=== PATIENT | female | born 1965 | race Caucasian/White ===

== ENCOUNTER → 2016-10-05 | Outpatient (CLI) | payer BC ==
[2016-10-05 08:31] LABS: Basophils # (A) 0.1 k/uL (0-0.2); Basophils % (A) 1 %; CH 29.8; CHCM 34.1; Eosinophils % (A) 1 %; HCT 42.6 % (34.0-46.0); HGB 13.9 gm/dL (11.4-16.0); Luc # (Auto) 0.08; Luc % (Auto) 1; Lymphocytes # (A) 1.7 k/uL (1.0-4.8); Lymphocytes % (A) 22 %; MCH 28.6 pg (25.0-35.0); MCHC 32.6 g/dL (31.0-37.0); MCV 87.8 fL (80.0-100.0); Mean Platelet Volume 7.3; Monocytes # (A) 0.4 k/uL (0-1.0); Monocytes % (A) 5 %; Neutrophils # (A) 5.5 k/uL (1.3-7.7); Neutrophils % (A) 71 %; RBC 4.85 m/uL (3.80-5.40); RDW 13.2 % (11.5-15.5); WBC 7.8 k/uL (3.8-10.6); WBC (Perox) 8.28
[2016-10-05 09:54] LABS: ALT 36 U/L (9-52); AST 15 U/L (14-36); Alkaline Phosphatase 86 U/L (38-126); Anion Gap 13 mmol/L; Blood Urea Nitrogen 25 mg/dL (7-17); Calcium 9.8 mg/dL (8.4-10.2); Carbon Dioxide 32 mmol/L (22-30); Chloride 100 mmol/L (98-107); Cholesterol 148 mg/dL (<200); Glucose 128 mg/dL (74-99); HDL Cholesterol 47 mg/dL (40-60); Non-African American GFR(MDRD) >60 (>60 ml/min/1.73 sqM); Potassium 4.1 mmol/L (3.5-5.1); Sodium 145 mmol/L (137-145); Total Bilirubin 0.6 mg/dL (0.2-1.3); Total Protein 7.4 g/dL (6.3-8.2); Triglycerides 98 mg/dL (<150)
[2016-10-05 10:56] LABS: Vitamin B12 >1000 pg/mL (239-931)
[2016-10-05 10:59] LABS: Hemoglobin A1C 6.2 % (4.2-6.1)
[2016-10-06 05:36] LABS: EBV - EA (IgG) 96.2 U/mL (<9.0); EBV - VCA (IgG) >750.0 U/mL (<18.0); EBV - VCA IgM <10.0 U/mL (<36.0)
== END | disposition home or self-care (01) ==
LOC: LABWHC1 08:07
PROVIDERS: ATTEND Family Medicine
DX: E78.5 Hyperlipidemia, unspecified (principal); E11.9 Type 2 diabetes mellitus without complications; I10 Essential (primary) hypertension; R15.9 Full incontinence of feces
CPT/HCPCS: 36415; 80053; 80061; 82607; 83036; 84439; 84443; 84481; 85025; 86308; 86663; 86664; 86665

== ENCOUNTER → 2017-01-08 | Outpatient (CLI) | payer BC ==
--- NOTE | 2017-01-11 09:23 | MM ---
Reason for exam: screening (asymptomatic). Last mammogram was performed 1 year ago. History: Patient is postmenopausal. Family history of breast cancer in paternal aunt. Physical Findings: A clinical breast exam by your physician is recommended on an annual basis and results should be correlated with mammographic findings. MG Screening Mammo w CAD Bilateral CC and MLO view(s) were taken. Prior study comparison: December 27, 2015, bilateral MG screening mammo w CAD. December 11, 2014, bilateral MG screening mammo w CAD. There are scattered fibroglandular densities. There is chronic nodularity bilaterally. No significant changes when compared with prior studies. ASSESSMENT: Benign, BI-RAD 2 RECOMMENDATION: Routine screening mammogram of both breasts in 1 year.
== END | disposition home or self-care (01) ==
LOC: RADMAMWWP 07:37
PROVIDERS: ATTEND Obstetrics & Gynecology
DX: Z12.31 Encounter for screening mammogram for malignant neoplasm of breast (principal)

== ENCOUNTER → 2017-04-12 | Outpatient (CLI) | payer BC ==
[2017-04-12 08:22] LABS: Basophils % (A) 0 %; CH 31.1; CHCM 34.2; Eosinophils # (A) 0.1 k/uL (0-0.7); Eosinophils % (A) 2 %; HCT 36.3 % (34.0-46.0); HDW 2.91; HGB 11.9 gm/dL (11.4-16.0); Luc # (Auto) 0.08; Luc % (Auto) 2; Lymphocytes # (A) 1.1 k/uL (1.0-4.8); Lymphocytes % (A) 23 %; MCHC 32.8 g/dL (31.0-37.0); MCV 91.3 fL (80.0-100.0); Mean Platelet Volume 7.4; Monocytes # (A) 0.2 k/uL (0-1.0); Monocytes % (A) 4 %; Neutrophils # (A) 3.3 k/uL (1.3-7.7); Neutrophils % (A) 69 %; RBC 3.97 m/uL (3.80-5.40); RDW 14.6 % (11.5-15.5); WBC 4.8 k/uL (3.8-10.6); WBC (Perox) 5.03
[2017-04-12 10:28] LABS: ALT 29 U/L (9-52); AST 18 U/L (14-36); Alkaline Phosphatase 83 U/L (38-126); Anion Gap 9 mmol/L; Blood Urea Nitrogen 24 mg/dL (7-17); Calcium 9.1 mg/dL (8.4-10.2); Carbon Dioxide 29 mmol/L (22-30); Chloride 107 mmol/L (98-107); Cholesterol 153 mg/dL (<200); Glucose 133 mg/dL (74-99); HDL Cholesterol 37 mg/dL (40-60); Non-African American GFR(MDRD) >60 (>60 ml/min/1.73 sqM); Potassium 3.8 mmol/L (3.5-5.1); Sodium 145 mmol/L (137-145); Total Bilirubin 0.3 mg/dL (0.2-1.3); Total Protein 6.1 g/dL (6.3-8.2)
[2017-04-12 11:26] LABS: Vitamin B12 >1000 pg/mL (239-931)
[2017-04-12 13:02] LABS: Hemoglobin A1C 6.3 % (4.2-6.1)
== END | disposition home or self-care (01) ==
LOC: LABWHC1 07:53
PROVIDERS: ATTEND Family Medicine
DX: E78.2 Mixed hyperlipidemia (principal); E11.9 Type 2 diabetes mellitus without complications; R53.82 Chronic fatigue, unspecified
CPT/HCPCS: 36415; 80053; 80061; 82306; 82607; 83036; 84439; 84443; 85025

== ENCOUNTER → 2017-06-11 | Outpatient (CLI) | payer BC ==
[2017-06-11 17:45] LABS: ALT 30 U/L (9-52); AST 16 U/L (14-36); Alkaline Phosphatase 93 U/L (38-126); Anion Gap 10 mmol/L; Blood Urea Nitrogen 23 mg/dL (7-17); Calcium 9.4 mg/dL (8.4-10.2); Carbon Dioxide 28 mmol/L (22-30); Chloride 100 mmol/L (98-107); Glucose 144 mg/dL (74-99); Non-African American GFR(MDRD) >60 (>60 ml/min/1.73 sqM); Sodium 138 mmol/L (137-145); Total Bilirubin 0.3 mg/dL (0.2-1.3)
[2017-06-12 00:09] LABS: Urine Creatinine 62.6 mg/dL
== END | disposition home or self-care (01) ==
LOC: LABWHC1 17:06
PROVIDERS: ATTEND Internal Medicine Endocrinology, Diabetes & Metabolism
DX: E11.65 Type 2 diabetes mellitus with hyperglycemia (principal)
CPT/HCPCS: 36415; 80053; 82043; 82570; 82607; 83036; 84443

== ENCOUNTER → 2017-07-01 | Outpatient (CLI) | payer BC ==
[2017-07-02 01:52] LABS: Soybean IgE <0.10 kU/L
[2017-07-05 20:42] LABS: Corn IgG 3.1 mcg/mL (< 2.0); Cow's Milk IgG 42.4 mcg/mL (< 2.0); Peanut IgG 2.4 mcg/mL (< 2.0); Potato IgG < 2.0 mcg/mL (< 2.0); Soybean IgG < 2.0 mcg/mL (< 2.0); Tomato IgG < 2.0 mcg/mL (< 2.0); Wheat IgG 2.7 mcg/mL (< 2.0)
[2017-07-06 07:34] LABS: Crab IgE <0.35 kU/L (<0.35); Crab IgE Class CLASS 0; Lettuce IgE Class CLASS 0
[2017-07-06 07:35] LABS: Beef IgE <0.35 kU/L (<0.35); Beef IgE Class CLASS 0; Pork IgE Class CLASS 0; Potato IgE <0.35 kU/L (<0.35); Potato IgE Class CLASS 0
[2017-07-06 07:36] LABS: Onion IgE <0.35 kU/L (<0.35); Onion IgE Class CLASS 0; Salmon IgE <0.35 kU/L (<0.35); Salmon IgE Class CLASS 0; Yeast Bakers/Brew IgE <0.35 kU/L (<0.35); Yeast Bakers/Brew IgE Class CLASS 0
[2017-07-06 07:37] LABS: Oat IgE Class CLASS 0
[2017-07-06 07:38] LABS: Celery IgE <0.35 kU/L (<0.35); Celery IgE Class CLASS 0; Chicken IgE Class CLASS 0; Chocolate IgE Class CLASS 0; Egg Yolk IgE Class CLASS 0; Latex IgE Class CLASS 0; Lobster IgE <0.35 kU/L (<0.35); Lobster IgE Class CLASS 0
[2017-07-06 07:39] LABS: Avocado Class CLASS 0; Banana IgE Class CLASS 0; Coffee IgE <0.35 kU/L (<0.35); Coffee IgE Class CLASS 0; Hazelnut IgE <0.35 kU/L (<0.35); Hazelnut IgE Class CLASS 0; Kiwi IgE <0.35 kU/L (<0.35); Kiwi IgE Class CLASS 0; Tea IgE <0.35 kU/L (<0.35); Tea IgE Class CLASS 0
== END ==
LOC: MMGSC 13:55
PROVIDERS: ATTEND Otolaryngology
DX: L50.0 Allergic urticaria (principal); J30.89 Other allergic rhinitis; B44.89 Other forms of aspergillosis
CPT/HCPCS: 36415; 86001; 86003

== ENCOUNTER → 2017-10-13 | Outpatient (CLI) | payer BC ==
[2017-10-13 18:49] LABS: ALT 22 U/L (9-52); AST 21 U/L (14-36); Albumin 4.1 g/dL (3.5-5.0); Alkaline Phosphatase 88 U/L (38-126); Anion Gap 11 mmol/L; Blood Urea Nitrogen 26 mg/dL (7-17); Calcium 9.5 mg/dL (8.4-10.2); Carbon Dioxide 30 mmol/L (22-30); Chloride 101 mmol/L (98-107); Cholesterol 168 mg/dL (<200); Glucose 103 mg/dL (74-99); HDL Cholesterol 33 mg/dL (40-60); LDL Cholesterol,Calculated 113 mg/dL (0-99); Potassium 4.2 mmol/L (3.5-5.1); Sodium 142 mmol/L (137-145); Total Bilirubin 0.6 mg/dL (0.2-1.3); Total Protein 6.8 g/dL (6.3-8.2); Triglycerides 109 mg/dL (<150)
[2017-10-14 03:51] LABS: Hemoglobin A1C 6.4 % (4.0-6.0)
== END | disposition home or self-care (01) ==
LOC: MMGSC 09:25
PROVIDERS: ATTEND Internal Medicine Endocrinology, Diabetes & Metabolism
DX: E11.65 Type 2 diabetes mellitus with hyperglycemia (principal)
CPT/HCPCS: 36415; 80053; 80061; 82607; 83036; 84443

== ENCOUNTER → 2017-12-23 | Outpatient (CLI) | payer BC ==
[2017-12-23 07:51] LABS: ALT 27 U/L (9-52); AST 19 U/L (14-36); Albumin 4.1 g/dL (3.5-5.0); Alkaline Phosphatase 76 U/L (38-126); Anion Gap 13 mmol/L; Blood Urea Nitrogen 21 mg/dL (7-17); Calcium 9.3 mg/dL (8.4-10.2); Carbon Dioxide 31 mmol/L (22-30); Chloride 101 mmol/L (98-107); Cholesterol 114 mg/dL (<200); Glucose 126 mg/dL (74-99); HDL Cholesterol 36 mg/dL (40-60); LDL Cholesterol,Calculated 58 mg/dL (0-99); Potassium 4.1 mmol/L (3.5-5.1); Sodium 145 mmol/L (137-145); Total Bilirubin 0.5 mg/dL (0.2-1.3); Total Protein 6.4 g/dL (6.3-8.2); Triglycerides 98 mg/dL (<150)
== END | disposition home or self-care (01) ==
LOC: LABWHC1 06:47
PROVIDERS: ATTEND Family Medicine
DX: E11.9 Type 2 diabetes mellitus without complications (principal); E78.00 Pure hypercholesterolemia, unspecified; Z86.39 Personal history of other endocrine, nutritional and metabolic disease
CPT/HCPCS: 36415; 80053; 80061; 82043; 82306; 82570; 83036

== ENCOUNTER → 2018-01-20 | Outpatient (CLI) | payer BC ==
--- NOTE | 2018-01-20 16:12 | BD ---
EXAMINATION TYPE: Axial Bone Density DATE OF EXAM: 01/20/2018 COMPARISON: 2016 CLINICAL HISTORY: osteopenia Height: 4'11 1/2 Weight: 225 FRAX RISK QUESTIONS: Secondary Osteoporosis: RISK FACTORS HISTORY OF: Diet low in dairy products/other sources of calcium: y Postmenopausal woman: MEDICATIONS: Additional Medications: cholesterol, type 2 diabetes, blood pressure, asthma Additional History: EXAM MEASUREMENTS: Bone mineral densitometry was performed using the [employer] System. Bone mineral density as measured about the Lumbar spine is: ----- L1-L4(G/cm2): 1.243 T Score Values are as follows: ----- L2: 0.8 ----- L3: 0.7 ----- L4: 1.1 ----- L1-L4: 0.5 Bone mineral density has: Increased 5.3% since study of: 12/27/2015 Bone mineral density about the R hip (g/cm2): 0.889 Bone mineral density about the L hip (g/cm2): 0.879 T Score values are as follows: -----R Neck: -1.1 -----L Neck: -1.1 -----R Total: 0.0 -----L Total: 0.1 Bone mineral density has: Increased 4.0% since study of: 12/27/2015 IMPRESSION: Osteopenia (T Score between -2.5 and -1) with regards to the right femur. There is slightly increased risk of fracture and the patient may be considered for treatment. Re-Screen 2-5 years. NOTE: T-SCORE=SD OF THE YOUNG ADULT MEAN.
--- NOTE | 2018-01-21 09:06 | MM ---
Reason for exam: screening (asymptomatic). Last mammogram was performed 1 year ago. History: Patient is postmenopausal. Family history of breast cancer in paternal aunt. Physical Findings: A clinical breast exam by your physician is recommended on an annual basis and results should be correlated with mammographic findings. MG Screening Mammo w CAD Bilateral CC and MLO view(s) were taken. Prior study comparison: January 08, 2017, bilateral MG screening mammo w CAD. December 27, 2015, bilateral MG screening mammo w CAD. There are scattered fibroglandular densities. Finding: There are typically benign round, linear calcifications in both breasts. There is a chronic nodularity in the right breast. There is no discrete abnormality. ASSESSMENT: Benign, BI-RAD 2 RECOMMENDATION: Routine screening mammogram of both breasts in 1 year.
== END | disposition home or self-care (01) ==
LOC: RADMAMWWP 14:33
PROVIDERS: ATTEND Obstetrics & Gynecology
DX: Z12.31 Encounter for screening mammogram for malignant neoplasm of breast (principal); M85.851 Other specified disorders of bone density and structure, right thigh
CPT/HCPCS: 77067; 77080

== ENCOUNTER → 2018-05-26 | Outpatient (CLI) | payer BC ==
[2018-05-26 10:14] LABS: ALT 35 U/L (9-52); AST 20 U/L (14-36); Alkaline Phosphatase 81 U/L (38-126); Anion Gap 9 mmol/L; Blood Urea Nitrogen 21 mg/dL (7-17); Calcium 9.5 mg/dL (8.4-10.2); Carbon Dioxide 30 mmol/L (22-30); Chloride 105 mmol/L (98-107); Glucose 109 mg/dL (74-99); Potassium 3.9 mmol/L (3.5-5.1); Sodium 144 mmol/L (137-145); Total Bilirubin 0.5 mg/dL (0.2-1.3); Total Protein 6.6 g/dL (6.3-8.2)
[2018-05-26 18:31] LABS: Hemoglobin A1C 5.5 % (4.0-6.0)
== END | disposition home or self-care (01) ==
LOC: LABWHC1 08:11
PROVIDERS: ATTEND Internal Medicine Endocrinology, Diabetes & Metabolism
DX: E11.65 Type 2 diabetes mellitus with hyperglycemia (principal)
CPT/HCPCS: 36415; 80053; 82043; 82570; 83036

== ENCOUNTER → 2019-01-25 | Outpatient (CLI) | payer BC ==
--- NOTE | 2019-01-27 13:53 | MM ---
Reason for exam: screening (asymptomatic). Last mammogram was performed 1 year ago. History: Patient is postmenopausal. Family history of breast cancer in paternal aunt. Physical Findings: A clinical breast exam by your physician is recommended on an annual basis and results should be correlated with mammographic findings. MG Screening Mammo w CAD Bilateral CC and MLO view(s) were taken. Prior study comparison: January 20, 2018, bilateral MG screening mammo w CAD. January 08, 2017, bilateral MG screening mammo w CAD. The breast tissue is heterogeneously dense. This may lower the sensitivity of mammography. Benign appearing bilateral calcifications. Chronic nipple inversion. ASSESSMENT: Benign, BI-RAD 2 RECOMMENDATION: Routine screening mammogram of both breasts in 1 year.
== END | disposition home or self-care (01) ==
LOC: RADMAMWWP 07:17
PROVIDERS: ATTEND Obstetrics & Gynecology
DX: Z12.31 Encounter for screening mammogram for malignant neoplasm of breast (principal)
CPT/HCPCS: 77067

== ENCOUNTER → 2019-01-26 | Outpatient (CLI) | payer BC ==
[2019-01-26 17:07] LABS: Albumin 4.5 g/dL (3.80-4.90); Albumin/Globulin Ratio 2.81 (1.60-3.17); Anion Gap 10.2 mmol/L (4.00-12.00); BUN/Creat Ratio 45.71 Ratio (12.00-20.00); Calcium 9.6 mg/dL (8.7-10.3); Carbon Dioxide 27.8 mmol/L (21.6-31.8); Globulin 1.6 g/dL (1.6-3.3); Potassium 3.9 mmol/L (3.5-5.5); Total Bilirubin 0.4 mg/dL (0.3-1.2); Total Protein 6.1 g/dL (6.2-8.2)
[2019-01-26 19:25] LABS: Hemoglobin A1C 5.7 % (4.0-6.0)
== END | disposition home or self-care (01) ==
LOC: LABWHC1 08:49
PROVIDERS: ATTEND Family Medicine
DX: E78.5 Hyperlipidemia, unspecified (principal); E11.9 Type 2 diabetes mellitus without complications; I10 Essential (primary) hypertension
CPT/HCPCS: 36415; 80053; 80061; 82306; 83036

== ENCOUNTER → 2020-02-01 | Outpatient (CLI) | payer BC ==
--- NOTE | 2020-02-06 11:27 | MM ---
Reason for exam: screening (asymptomatic). Last mammogram was performed 1 year ago. History: Patient is postmenopausal. Family history of breast cancer in paternal aunt. Physical Findings: A clinical breast exam by your physician is recommended on an annual basis and results should be correlated with mammographic findings. MG Screening Mammo w CAD Bilateral CC and MLO view(s) were taken. Prior study comparison: January 25, 2019, bilateral MG screening mammo w CAD. January 20, 2018, bilateral MG screening mammo w CAD. There are scattered fibroglandular densities. Finding #1: There is a 11 mm equal density (isodense), oval mass in the upper outer quadrant of the left breast. Finding #2: There are typically benign calcifications in both breasts. There is a chronic nodularity bilaterally. ASSESSMENT: Incomplete: need additional imaging evaluation, BI-RAD 0 RECOMMENDATION: Special view mammogram of the left breast. If lesion persists on supplemental views, image directed ultrasound is recommended. [facility] will attempt to contact patient to return for supplemental views and ultrasound if indicated.
== END | disposition home or self-care (01) ==
LOC: RADMAMWWP 08:00
PROVIDERS: ATTEND Obstetrics & Gynecology
DX: Z12.31 Encounter for screening mammogram for malignant neoplasm of breast (principal)
CPT/HCPCS: 77067

== ENCOUNTER → 2020-02-09 | Outpatient (CLI) | payer BC ==
--- NOTE | 2020-02-12 08:52 | MM ---
Reason for exam: additional evaluation requested from abnormal screening. Last mammogram was performed less than 1 month ago. History: Patient is postmenopausal. Family history of breast cancer in paternal aunt. Physical Findings: Nurse did not find any significant physical abnormalities on exam. MG Work Up Mamm w CAD LT Spot compression CC, spot compression MLO, and LM view(s) were taken of the left breast. Prior study comparison: February 01, 2020, bilateral MG screening mammo w CAD. January 25, 2019, bilateral MG screening mammo w CAD. Finding: There is a 5 mm equal density (isodense), circumscribed round mass located 6 cm from the nipple in the upper outer quadrant of the left breast. Remains present on compression. These results were verbally communicated with the patient and result sheet given to the patient on 02/09/20. ASSESSMENT: Incomplete: need additional imaging evaluation, BI-RAD 0 RECOMMENDATION: Ultrasound of the left breast.
--- NOTE | 2020-02-12 08:55 | USB ---
Reason for exam: additional evaluation requested from abnormal screening. History: Patient is postmenopausal. Family history of breast cancer in paternal aunt. US Breast Workup Limited LT Left limited breast ultrasound including focal area of concern, retroareolar and axilla demonstrates a 7 x 2 x 7mm oval, hypoechoic lesion at 2 o'clock. These results were verbally communicated with the patient and result sheet given to the patient on 02/09/20. ASSESSMENT: Suspicious, BI-RAD 4 RECOMMENDATION: Ultrasound core biopsy of the left breast. (2 o'clock, stereotactic biopsy is ultrasound biopsy prohibitive) Called Dr. Aquino's office with mammographic findings and has scheduled an appointment for the patient for 03/06/20 at 4:[address] Lawson. Biopsy scheduled for 02/28/20 at 10:30. PRELIMINARY REPORT CALLED AND FAXED TO DR. LAWSON ON 02/12/20.
== END | disposition home or self-care (01) ==
LOC: RADMAMWWP 08:22
PROVIDERS: ATTEND Obstetrics & Gynecology
DX: R92.8 Other abnormal and inconclusive findings on diagnostic imaging of breast (principal)
CPT/HCPCS: 77065

== ENCOUNTER → 2020-02-19 | Day surgery (SDC) | payer BC ==
[2020-02-19 12:10] VITALS: RESP 18; TEMP 98.9
--- NOTE | 2020-02-19 13:19 | USB ---
EXAMINATION TYPE: US biopsy breast VAD LT, MG post biopsy diagnostic mammo LT wo CAD DATE OF EXAM: 02/19/2020 CLINICAL HISTORY: 54-year-old female R92.8 ABN MAMMO. TECHNIQUE: Ultrasound guided core biopsy of the left breast. COMPARISON: 02/09/2020 FINDINGS: The procedure of ultrasound guided core biopsy was explained to the patient. Benefits, alternatives, and risks were discussed. An informed consent was then obtained. The biopsy targeted at the 2:30 position left breast was identified. On the present images, the appearance is that of an intramammary lymph node. Decision is made to proceed with biopsy and determine clip positioning relative to the mammographic abnormality. The patient was placed in supine positioning for imaging and for the procedure. The overlying skin was prepped and draped in usual sterile fashion. Lidocaine was used as anesthetic into the skin followed by lidocaine/epinephrine mixture into the subcutaneous tissue up to area of concern in the 2:30 left breast. Under ultrasound guidance, a 13-gauge vacuum-assisted mammotome Elite biopsy done was used to obtain 5 core samples. Following this, a coil clip was left at the site of biopsy. The patient tolerated the procedure well without any immediate complication. The patient was kept in the radiology department for short stay after the procedure and then discharged home in stable condition. Post procedure mammogram shows that the clip corresponds to the initially questioned mammographic nodule. IMPRESSION: Successful, uncomplicated ultrasound guided core biopsy of a left breast intramammary lymph node. After clip positioning, this is seen to correspond to the suspicious mammographic nodule. Biopsy results pending. Pathology Results: Benign LEFT BREAST LESION, NEEDLE CORE BIOPSIES: Fibroadipose breast parenchyma with fibrocystic spectrum lesions and a non-atypical intramammary lymph node sample. Recommendation Follow up mammogram of the left breast in 6 months. DIVYA
[2020-02-19 13:36] VITALS: BP 140/83; PULSE 60
== END ==
LOC: RADUSWWP 11:50
PROVIDERS: ATTEND Surgery
DX: N60.12 Diffuse cystic mastopathy of left breast (principal)
CPT/HCPCS: 88305; 77065; 19083; A4648; J2001

== ENCOUNTER → 2020-05-28 | Outpatient (CLI) | payer BC ==
[2020-05-28 14:11] LABS: African American GFR (CKD) 117.3 (60.0-200.0); Albumin 4.4 g/dL (3.80-4.90); Albumin/Globulin Ratio 2.44 (1.60-3.17); Anion Gap 9.6 mmol/L (4.00-12.00); BUN/Creat Ratio 56.67 Ratio (12.00-20.00); Calcium 9.5 mg/dL (8.7-10.3); Carbon Dioxide 29.4 mmol/L (21.6-31.8); Chol/HDL Ratio 2.75; Globulin 1.8 g/dL (1.6-3.3); LDL Cholesterol,Calculated 64.6 mg/dL (0.0-131.0); Non-African American GFR(CKD) 101.2 (60.0-200.0); Potassium 4.2 mmol/L (3.5-5.5); Total Bilirubin 0.4 mg/dL (0.3-1.2); Total Protein 6.2 g/dL (6.2-8.2); VLDL Calculation 12.4 mg/dL (5.00-40.00)
[2020-05-28 14:15] LABS: Hemoglobin A1C 5.5 % (4.0-6.0)
[2020-05-28 14:50] LABS: Urine Creatinine 78.6 mg/dL
[2020-05-28 16:09] LABS: T4, Free (Free Thyroxine) 1.2 ng/dL (0.80-1.80)
== END | disposition home or self-care (01) ==
LOC: LABWHC1 06:54
PROVIDERS: ATTEND Family Medicine
DX: E11.9 Type 2 diabetes mellitus without complications (principal); I10 Essential (primary) hypertension; E55.9 Vitamin D deficiency, unspecified; E78.00 Pure hypercholesterolemia, unspecified
CPT/HCPCS: 36415; 80053; 80061; 82043; 82306; 82570; 83036; 84439; 84443

== ENCOUNTER → 2020-09-04 | Outpatient (CLI) | payer BC ==
--- NOTE | 2020-09-04 14:44 | MM ---
Reason for exam: follow-up at short interval from prior study. Last mammogram was performed 6 months ago. History: Patient is postmenopausal. Family history of breast cancer in paternal aunt. Benign US biopsy breast VAD LT of the left breast, February 19, 2020. Physical Findings: Nurse did not find any significant physical abnormalities on exam. MG Diagnostic Mammo LT w CAD CC, MLO, and XCCL view(s) were taken of the left breast. Prior study comparison: February 19, 2020, left breast MG diagnostic mammo LT wo CAD. February 09, 2020, left breast MG work up mamm w CAD LT. There are scattered fibroglandular densities. Previous mammotome biopsy in the left breast. Benign secretory calcifications. No significant new findings when compared with previous films. These results were verbally communicated with the patient and result sheet given to the patient on 09/04/20. ASSESSMENT: Benign, BI-RAD 2 RECOMMENDATION: Return to routine screening mammogram schedule for both breasts.
== END | disposition home or self-care (01) ==
LOC: RADMAMWWP 13:33
PROVIDERS: ATTEND Surgery
DX: R92.8 Other abnormal and inconclusive findings on diagnostic imaging of breast (principal)
CPT/HCPCS: 77065

== ENCOUNTER → 2020-10-01 | Outpatient (CLI) | payer BC ==
--- NOTE | 2020-10-01 16:07 | CT ---
EXAMINATION TYPE: CT abdomen pelvis wo con DATE OF EXAM: 10/01/2020 COMPARISON: None HISTORY: Recurrent UTIs. CT DLP: 947.3 mGycm Automated exposure control for dose reduction was used. TECHNIQUE: Helical acquisition of images from the lung bases through the pelvis. FINDINGS: Lack of intravenous contrast could compromise sensitivity. LUNG BASES: No significant abnormality is appreciated. AORTA: No significant abnormality is appreciated. LIVER/GB: No significant abnormality is appreciated. PANCREAS: No significant abnormality is seen. SPLEEN: Borderline enlarged ADRENALS: No significant abnormality is seen. KIDNEYS: Punctate non obstructive calculus on the right, no hydronephrosis. REPRODUCTIVE ORGANS: No significant abnormality is seen. URINARY BLADDER: Suspect a cystocele is present. BOWEL: Possibly a rectocele is present. The appendix is normal, there are scattered diverticular stacie nges within the colon FREE AIR: No Free Air is visible. ASCITES: None visible. PELVIC ADENOPATHY: None visualized. RETROPERITONEAL ADENOPATHY: No Retroperitoneal Adenopathy visible. OSSEOUS STRUCTURES: Degenerative disc changes are present at the lumbar spine, there is a spinal cur vature. IMPRESSION: FINDINGS SUGGEST A CYSTOCELE, SPLENOMEGALY, ADDITIONAL FINDINGS ABOVE
== END | disposition home or self-care (01) ==
LOC: RADCTMAIN 15:11
PROVIDERS: ATTEND Urology
DX: R35.0 Frequency of micturition (principal); Z88.2 Allergy status to sulfonamides; Z91.040 Latex allergy status; Z91.09 Other allergy status, other than to drugs and biological substances; Z88.8 Allergy status to other drugs, medicaments and biological substances; Z88.1 Allergy status to other antibiotic agents
CPT/HCPCS: 74176

== ENCOUNTER → 2020-11-15 | Outpatient (CLI) | payer BC ==
[2020-11-15 18:06] LABS: African American GFR (CKD) 111.5 (60.0-200.0); Albumin 4.3 g/dL (3.80-4.90); Albumin/Globulin Ratio 2.39 (1.60-3.17); Anion Gap 7.6 mmol/L (4.00-12.00); Calcium 9.3 mg/dL (8.7-10.3); Carbon Dioxide 29.4 mmol/L (21.6-31.8); Globulin 1.8 g/dL (1.6-3.3); Non-African American GFR(CKD) 96.2 (60.0-200.0); Total Bilirubin 0.3 mg/dL (0.3-1.2); Total Protein 6.1 g/dL (6.2-8.2)
[2020-11-15 18:43] LABS: Urine Creatinine 141.1 mg/dL
== END | disposition home or self-care (01) ==
LOC: LABWHC1 08:11
PROVIDERS: ATTEND Internal Medicine Endocrinology, Diabetes & Metabolism
DX: E11.65 Type 2 diabetes mellitus with hyperglycemia (principal); R25.2 Cramp and spasm; E11.21 Type 2 diabetes mellitus with diabetic nephropathy
CPT/HCPCS: 36415; 80053; 82043; 82570; 82607; 83735

== ENCOUNTER → 2021-01-01 | Outpatient (CLI) | payer BC ==
[2021-01-02 03:40] LABS: African American GFR (CKD) 111.5 (60.0-200.0); Albumin 4.3 g/dL (3.80-4.90); Albumin/Globulin Ratio 2.26 (1.60-3.17); Anion Gap 8.8 mmol/L (4.00-12.00); BUN/Creat Ratio 34.29 Ratio (12.00-20.00); Calcium 9.3 mg/dL (8.7-10.3); Carbon Dioxide 30.2 mmol/L (21.6-31.8); Globulin 1.9 g/dL (1.6-3.3); Non-African American GFR(CKD) 96.2 (60.0-200.0); Potassium 4.3 mmol/L (3.5-5.5); Total Bilirubin 0.5 mg/dL (0.2-1.2); Total Protein 6.2 g/dL (6.2-8.2)
== END | disposition home or self-care (01) ==
LOC: LABWHC1 07:28
PROVIDERS: ATTEND Internal Medicine Endocrinology, Diabetes & Metabolism
DX: R79.9 Abnormal finding of blood chemistry, unspecified (principal)
CPT/HCPCS: 36415; 80053

== ENCOUNTER → 2021-02-04 | Outpatient (CLI) | payer BC ==
--- NOTE | 2021-02-06 07:26 | BD ---
EXAMINATION TYPE: Axial Bone Density DATE OF EXAM: 02/04/2021 COMPARISON: NONE CLINICAL HISTORY: Height: 4 FT 10 1/4 IN Weight: 204 FRAX RISK QUESTIONS: Alcohol (3 or more units per day): NO Family History (Parent hip fracture): NO Glucocorticoids (More than 3mos): NO (Ex: prednisone, prednisolone, methylprednisolone, dexamethasone, and hydrocortisone). History of Fracture in Adulthood: NO Secondary Osteoporosis: 1. Type 1 Diabetes: NO 2. Hyperthyroidism: NO 3. Menopause before 45: NO 4. Malnutrition: NO 5. Chronic liver disease: NO Rheumatoid Arthritis: NO Current Tobacco Use: NO RISK FACTORS HISTORY OF: Surgery to Spine/Hip(right/left)/Wrist (right/left):GANGLION CYST REMOVED FROM LEFT WRIST UNSURE WHAT YEAR Family History of Osteoporosis: NO Active: NO Diet low in dairy products/other sources of calcium: NO Postmenopausal woman: AGE 46 Take estrogen and/or progesterone medications: NONE Lost more than 2 inches in height since high school: YES MEDICATIONS: Additional Medications: METFORMIN, TELMISARTAN, OMEPRAZOLE, CLARITIN, CRESTOR, BABY ASPIRIN Additional History: VICKI KNEE REPLACEMENT EXAM MEASUREMENTS: Bone mineral densitometry was performed using the [employer] System. Bone mineral density as measured about the Lumbar spine is: ----- L1-L4(G/cm2): 1.256 T Score Values are as follows: ----- L2: 0.5 ----- L3: 1.1 ----- L4: 1.3 ----- L1-L4: 0.6 Bone mineral density has: INCREASED 1.1 % since study of: 2018 Bone mineral density about the R hip (g/cm2): 0.791 Bone mineral density about the L hip (g/cm2): 0.850 T Score values are as follows: -----R Neck: -1.8 -----L Neck: -1.4 -----R Total: -0.8 -----L Total: -0.5 Bone mineral density has: DECREASED -8.5 % since study of: 2018 IMPRESSION: Osteopenia (T Score between -2.5 and -1) remains present femoral neck level both hips. There remains slightly increased risk of fracture and the patient may be considered for treatment. Re-Screen 2-5 years. NOTE: T-SCORE=SD OF THE YOUNG ADULT MEAN.
--- NOTE | 2021-02-06 09:36 | MM ---
Reason for exam: screening (asymptomatic). Last mammogram was performed 5 months ago. History: Patient is postmenopausal. Family history of breast cancer in paternal aunt. Benign US biopsy breast VAD LT of the left breast, February 19, 2020. Physical Findings: A clinical breast exam by your physician is recommended on an annual basis and results should be correlated with mammographic findings. MG Screening Mammo w CAD Bilateral CC and MLO view(s) were taken. Prior study comparison: September 04, 2020, left breast MG diagnostic mammo LT w CAD. February 19, 2020, left breast MG diagnostic mammo LT wo CAD. February 09, 2020, left breast MG work up mamm w CAD LT. February 01, 2020, bilateral MG screening mammo w CAD. January 25, 2019, bilateral MG screening mammo w CAD. There are scattered fibroglandular densities. Previous mammotome biopsy in the left breast. ASSESSMENT: Benign, BI-RAD 2 RECOMMENDATION: Routine screening mammogram of both breasts in 1 year.
== END | disposition home or self-care (01) ==
LOC: RADMAMWWP 14:28
PROVIDERS: ATTEND Obstetrics & Gynecology
DX: Z12.31 Encounter for screening mammogram for malignant neoplasm of breast (principal); M85.89 Other specified disorders of bone density and structure, multiple sites
CPT/HCPCS: 77067; 77080

== ENCOUNTER → 2021-03-27 | Outpatient (CLI) | payer BC | END | disposition home or self-care (01) | LOC: LABWHC1 12:50 | PROVIDERS: ATTEND Obstetrics & Gynecology | DX: F41.8 Other specified anxiety disorders (principal); R53.83 Other fatigue | CPT/HCPCS: 36415; 84443; 84481; 86376 ==

== ENCOUNTER → 2021-04-16 | Outpatient (CLI) | payer BC ==
--- NOTE | 2021-04-16 21:37 | CT ---
EXAMINATION TYPE: CT iac wo con DATE OF EXAM: 04/16/2021 COMPARISON: None HISTORY: 56-year-old female H83.8X2, vertigo. Superior canal dehiscence syndrome CT DLP: 150 mGycm Automated exposure control for dose reduction was used. TECHNIQUE: Contiguous high-resolution axial scanning of the temporal bones performed without contras t. Coronal reformatted images obtained. Stenvers and Poschl views were also obtained. FINDINGS: There is a metastatic calcifications in the right carotid siphon. Otherwise, there is no abnormality of visualized intracranial structures allowing for thin section noncontrast CT. The skull base appears normal. Minimal strandy debris along the midsegment of the bilateral external auditory canals. The middle ear cavities and mastoid air cells are well pneumatized. There is no abnormality of middle ear ossicles. The round and oval windows are normal. There is no abnormality of bony labyrinths. No evidence for dehiscence of the superior semicircular c anal on either side. The vestibular and cochlear aqueducts are well visualized. The facial nerve canal is normal bilaterally. The internal auditory canal and meati are symmetrical bilaterally. There is no evidence of fractures. Complete opacification of the visualized bilateral maxillary sinuses. Reformatted images confirm above findings. IMPRESSION: 1. No CT evidence for superior semicircular canal dehiscence on either side. 2. Minimal strandy debris within the mid segment of the bilateral external auditory canals. 3. Complete opacification of the bilateral maxillary sinuses. Correlate for sinusitis. 4. Otherwise, unremarkable temporal bone CT.
== END | disposition home or self-care (01) ==
LOC: RADCTMAIN 14:57
PROVIDERS: ATTEND Student in an Organized Health Care Education/Training Program
DX: H83.8X2 Other specified diseases of left inner ear (principal); D33.3 Benign neoplasm of cranial nerves
CPT/HCPCS: 70480

== ENCOUNTER → 2021-05-04 | Outpatient (CLI) | payer BC ==
--- NOTE | 2021-05-04 09:29 | MR ---
EXAMINATION TYPE: MR brain and iac wo/w con DATE OF EXAM: 05/04/2021 COMPARISON: CT internal auditory canal April 16, 2021 HISTORY: Vertigo, acoustic neuroma, superior canal dehiscent syndrome. TECHNIQUE: Multiplanar, multisequence images of the brain and brainstem along with internal auditory canals are all performed without and with IV contrast, utilizing 9 mL intravenous Gadavist . FINDINGS: Diffusion weighted images demonstrate no evidence of a recent infarct or other diffusion ab normality. The ventricular system and cisternal spaces are normal in size and appearance. The brain volume is age appropriate. Some scattered areas of T2 hyperintensity greatest periventricular region bilateral parietal lobes. Findings presumed on the basis of proximal of chronic small vessel ischemic change. Midline structures demonstrate normal morphology. The craniocervical junction appears within normal limits. Post contrast images demonstrate no abnormal enhancement with particular attention to the po ntine region and brainstem. The dural venous sinuses appear patent. Completely fluid-filled bilateral maxillary sinuses redemonstrated. Globes are intact bilaterally. No suspicious fluid signal in the mastoid air cells bilaterally. Vestibular cochlear complexes are sy mmetric and felt within normal limits. No suspicious enhancing cerebellopontine angle mass identified bilaterally. On review of CT I agree there appears to be satisfactory superior osseous overgrowth of the superior semicircular canal. IMPRESSION: 1. No suspicious findings seen to account for patient's symptoms of vertigo. 2. Mild chronic small vessel ischemic change noted and bilateral maxillary sinus disease redemonstrat ed.
== END | disposition home or self-care (01) ==
LOC: RADMRIMAIN 08:18
PROVIDERS: ATTEND Student in an Organized Health Care Education/Training Program
DX: H83.8X2 Other specified diseases of left inner ear (principal); D33.3 Benign neoplasm of cranial nerves
CPT/HCPCS: 70553; A9585

== ENCOUNTER → 2021-05-22 | Outpatient (CLI) | payer BC, OTHER | END | disposition home or self-care (01) | LOC: LABWHC1 16:22 | PROVIDERS: ATTEND Emergency Medicine | DX: Z03.818 Encounter for observation for suspected exposure to other biological agents ruled out (principal); Z20.828 Contact with and (suspected) exposure to other viral communicable diseases | CPT/HCPCS: 87635 ==

== ENCOUNTER → 2021-05-23 | Outpatient (CLI) | payer BC, OTHER | END | disposition home or self-care (01) | LOC: LABWHC1 17:14 | PROVIDERS: ATTEND Emergency Medicine | DX: Z20.822 Contact with and (suspected) exposure to COVID-19 (principal) | CPT/HCPCS: 87635 ==

== ENCOUNTER → 2021-11-19 | Outpatient (CLI) | payer BC ==
[2021-11-19 18:45] LABS: Appearance,Urine Turbid (Clear); Bacteria,Urine None Seen /HPF (None Seen); Bilirubin,Urine Negative (Negative); Blood,Urine Negative (Negative); Color,Urine Yellow (Yellow); Ketones,Urine Trace mg/dL (Negative); Leukocyte Esterase,Urine Trace (Negative); Nitrite,Urine Negative (Negative); PH, Urine 5.5 (5.0-8.0); Protein,Urine Negative (Negative); RBC,Urine 0-2 /HPF (0-2); Specific Gravity,Urine 1.026 (1.001-1.030); Urobilinogen,Urine 0.2 (0.2,1.0); WBC,Urine 0-5 /HPF (0-5)
[2021-11-19 20:13] LABS: Progesterone 0.1 ng/mL
[2021-11-19 21:04] LABS: African American GFR (CKD) 117.2 (60.0-200.0); Albumin 4.3 g/dL (3.8-4.9); Albumin/Globulin Ratio 1.86 (1.60-3.17); Anion Gap 10.8 mmol/L (10.00-18.00); BUN/Creat Ratio 52.55 Ratio (12.00-20.00); Blood Urea Nitrogen 30.9 mg/dL (9.0-27.0); C Reactive Protein 0.5 mg/dL (0.00-0.80); Calcium 9.5 mg/dL (8.7-10.3); Carbon Dioxide 25.9 mmol/L (20.0-27.5); Globulin 2.3 g/dL (1.6-3.3); Magnesium 1.9 mg/dL (1.5-2.4); Non-African American GFR(CKD) 101.1 (60.0-200.0); Potassium 3.8 mmol/L (3.5-5.5); T4, Free (Free Thyroxine) 1.04 ng/dL (0.800-1.800); Total Bilirubin 0.3 mg/dL (0.30-1.20); Total Protein 6.6 g/dL (6.2-8.2)
[2021-11-19 21:10] LABS: Luteinizing Hormone 26.7 mIU/mL
[2021-11-19 21:11] LABS: Estradiol 20.6 pg/mL; Follicle Stimulating Hormone 57.9 mIU/mL
[2021-11-20 08:24] LABS: ACTH 30.2 pg/mL (0.00-45.99)
== END | disposition home or self-care (01) ==
LOC: LABWHC1 10:48
PROVIDERS: ATTEND Internal Medicine Endocrinology, Diabetes & Metabolism
DX: E11.65 Type 2 diabetes mellitus with hyperglycemia (principal); E55.9 Vitamin D deficiency, unspecified; N95.1 Menopausal and female climacteric states; R30.0 Dysuria; M85.80 Other specified disorders of bone density and structure, unspecified site
CPT/HCPCS: 36415; 80053; 81001; 82024; 82306; 82533; 82607; 82627; 82670; 83001; 83002; 83735; 83835; 83970; 84144; 84439; 84443; 84480; 86140

== ENCOUNTER → 2022-02-05 | Outpatient (CLI) | payer BC ==
--- NOTE | 2022-02-07 13:10 | MM ---
Reason for Exam: Screening (asymptomatic). Last screening mammogram was performed 12 month(s) ago. Patient History: Menarche at age 10. First Full-Term at age 19. Postmenopausal. 02/19/2020, Benign Core Biopsy on the left side. Paternal aunt had breast cancer. Risk Values: Bing 5 year model risk: 1.4%. NCI Lifetime model risk: 8.1%. Prior Study Comparison: 02/19/2020 Left Diagnostic Mammogram, [facility]. 09/04/2020 Left Diagnostic Mammogram, [facility]. 02/04/2021 Bilateral Screening Mammogram, [facility]. Tissue Density: There are scattered fibroglandular densities. Findings: Analyzed By CAD. Chronic nodularity both breasts. Microclip lateral left breast from prior biopsy. Benign bilateral secretory calcifications redemonstrated. Slight nipple retraction on the left remains a chronic finding. No significant change from prior exams. Overall Assessment: Benign, BI-RAD 2 Management: Screening Mammogram of both breasts in 1 year. 1. Patient should continue monthly self breast exams. 2. A clinical breast exam by your physician is recommended on an annual basis and results should be correlated with mammographic findings. A negative mammogram should not preclude additional follow-up of suspicious palpable abnormalities. Electronically signed and approved by: Fabrice Vasquez M.D. Radiologist
== END | disposition home or self-care (01) ==
LOC: RADMAMWWP 14:36
PROVIDERS: ATTEND Obstetrics & Gynecology
DX: Z12.31 Encounter for screening mammogram for malignant neoplasm of breast (principal)
CPT/HCPCS: 77067

== ENCOUNTER → 2022-05-21 | Outpatient (CLI) | payer BC ==
--- NOTE | 2022-05-21 16:23 | P.PN ---
Subjective DATE: 05/21/2022 FOLLOW UP VISIT. Patient with obstructive sleep apnea hypopnea syndrome return to sleep center for follow-up visit. Recently patient had sleep study which documented obstructive sleep apnea hypopnea syndrome. Patient was initiated on PAP therapy and today is first visit after treatment was started. Patient was able to use PAP equipment every night for the whole night. The patient does not have significant problems with the mask, PAP pressure and humidification. [place] sleepiness scale is 1. I checked information from PAP unit. PAP unit pressure 5-10, average 7.3 cm H2O. Usage is 97 % for more then 4 hours, average 8 hours per night. Leak is 5.1 l/m, which is in acceptable range. Apnea Hypopnea Index is 0.5, which is normal. MEDICATIONS:1. Metformin 500 mg twice a day 2. Rosuvastatin 5 mg once a day 3. Famotidine 20 mg twice a day 4. Aspirin 81 mg once a day During physical exam: GENERAL: A pleasant patient without any distress. VITAL SIGNS: BP 103/45, HR 80, RR 16 , weight 205, temperature 97.7, oxygen saturation at room air 96% . HEENT: PERRLA, EOMI.low position of soft palate, Mallapati 4 . NECK: Supple. No JVD. LUNGS: Clear to percussion and to auscultation. Good air exchange. No wheezing or rhonchi. HEART: S1, S2 regular. ABDOMEN: Soft and nontender.[] EXTREMITIES: No clubbing or cyanosis. LUNCHROOM MOTHER: Awake, alert, and oriented x3. No focal deficit. Impressions: 1. Obstructive sleep apnea-hypopnea syndrome. Patient demonstrated great compliance with treatment, benefiting from treatment. 2. Obesity. 3. Diabetes mellitus. 4. Hyperlipidemia. 5. Acid reflux. 6. Status post bilateral knee replacement. 7. Status post uterosacral ablation. Plan: 1. Continue using PAP equipment every night for the whole night. 2. To change air filter at least 1-2 times per month. 3. PAP unit should stay lower then position of the head. 4. Advised patient to remove all remaining water from humidifier canister daily and make it dry after each usage. Refill canister with fresh distilled water before each usage. 5. Sleep hygiene with regular time in bed for at least 8 hours. 6. Precautions related to driving. No driving if feel any sleepiness. 7. I will maintain prescription for PAP supplies including mask, tube, filters. 8. Follow up visit in 6 months or earlier if patient has any problems. 9. Watching weight. Thank you very much for allowing me to participate in the management of your patient. Charlie Chávez MD, PhD, FAASM. Diplomat of [place] [employer], Sleep Medicine Board by [place] [employer] Operator of [facility] [place]
== END ==
LOC: SLEEP 15:47
PROVIDERS: ATTEND Internal Medicine
DX: G47.33 Obstructive sleep apnea (adult) (pediatric) (principal); E66.9 Obesity, unspecified; E11.9 Type 2 diabetes mellitus without complications; Z79.84 Long term (current) use of oral hypoglycemic drugs; E78.5 Hyperlipidemia, unspecified; K21.9 Gastro-esophageal reflux disease without esophagitis; Z96.653 Presence of artificial knee joint, bilateral

== ENCOUNTER → 2022-06-22 | Outpatient (CLI) | payer BC ==
[2022-06-22 15:07] LABS: ALT 17 U/L (8-44); AST 15 U/L (13-35); African American GFR (CKD) 104.1 (60.0-200.0); Albumin 4.3 g/dL (3.8-4.9); Albumin/Globulin Ratio 2.07 (1.60-3.17); Alkaline Phosphatase 65 U/L (41-126); Blood Urea Nitrogen 36.6 mg/dL (9.0-27.0); Carbon Dioxide 26.2 mmol/L (20.0-27.5); Chloride 98 mmol/L (96-109); Globulin 2.1 g/dL (1.6-3.3); Glucose 182 mg/dL (70-110); LDL Cholesterol,Calculated 78.7 mg/dL (0.0-131.0); Non-African American GFR(CKD) 89.9 (60.0-200.0); Potassium 4.3 mmol/L (3.5-5.5); Sodium 138 mmol/L (135-145); Total Protein 6.4 g/dL (6.2-8.2)
[2022-06-22 16:40] LABS: Magnesium 1.9 mg/dL (1.5-2.4)
== END | disposition home or self-care (01) ==
LOC: LABWHC1 08:10
PROVIDERS: ATTEND Internal Medicine Endocrinology, Diabetes & Metabolism
DX: E83.51 Hypocalcemia (principal); E78.2 Mixed hyperlipidemia
CPT/HCPCS: 36415; 80053; 80061; 82306; 82607; 83735

== ENCOUNTER → 2022-10-29 | Outpatient (CLI) | payer MEDICAID, BC ==
[2022-10-29 23:07] LABS: Microalbumin Creatinine Ratio <30 mg/g Creat (0-30); Urine Creatinine 35.8 mg/dL (28.0-217.0)
== END | disposition home or self-care (01) ==
LOC: LABWHC1 10:43
PROVIDERS: ATTEND Internal Medicine Endocrinology, Diabetes & Metabolism
DX: E11.65 Type 2 diabetes mellitus with hyperglycemia (principal); E11.21 Type 2 diabetes mellitus with diabetic nephropathy
CPT/HCPCS: 82043; 82570

== ENCOUNTER 2022-11-27 06:30 | Day surgery (SDC) | payer MEDICAID, BC ==
[~2022-11-27 06:30] MED LIST: LACTATED RINGERS 1,000 ML IV SCH
[2022-11-27 07:09] VITALS: TEMP 96.9
[2022-11-27 07:14] LABS: Glucose,Whole Blood 87 mg/dL (70-110)
[2022-11-27] MEDS ORDERED: PROPOFOL 10 MG/ML 20 ML VIAL IV ONE (07:41)
[2022-11-27] MEDS ORDERED: LIDOCAINE 2% INJ 20 MG/ML (2 ML VIAL) ONE (07:41)
--- NOTE | 2022-11-27 08:02 | P.PCN ---
Date of Procedure: 11/27/22 Procedure(s) Performed: Brief history: Patient is a pleasant 57-year-old white female scheduled for an elective upper endoscopy as well as colonoscopy as a part of evaluation of long-standing history of GERD and screening for colon Procedure performed: Esophagogastroduodenoscopy with biopsy Colonoscopy with snare polypectomy Preoperative diagnosis: Long-standing history of GERD Screening for colon cancer Anesthesia: MAC Procedure: After informed consent was obtained from the patient was brought into the endoscopy unit and IV sedation was administered by anesthesia under continuous monitoring. Initially upper endoscopy was done. The Olympus GF 160 video endoscope was inserted inserted into the mouth and esophagus intubated without any difficulty and was gradually advanced into the stomach and duodenum and carefully examined. The bulb and second part of the duodenum appeared normal. The scope was then withdrawn into the stomach adequately insufflated with air and upon careful examination the antrum had diffuse gastritis and scattered erosions and biopsies were done from this area. There a few gastric polyps noted in the body the stomach which were also biopsied. Rest of the body, cardia and fundus appeared normal. The scope was then withdrawn into the esophagus. The GE junction was located at 40 cm to the incisors. It appeared regular with no erythema erosions or ulcerations. Rest of the esophagus appeared normal. Patient tolerated the procedure well. At this time the patient continued to remain sedation. Initial digital rectal examination was normal. Olympus CF 160 video colonoscope was then inserted into the rectum and gradually advanced to the cecum without any difficulty. Careful examination was performed as the scope was gradually being withdrawn. The prep was excellent. The cecum, had a 7 mm sessile polyp removed by snare polypectomy. Rest of the ascending colon, transverse colon, descending colon, sigmoid colon and rectum appeared normal. Scattered sigmoid diverticulosis. Retroflexion was performed in the rectum and no lesions were noted. Patient tolerated the procedure well. Impression: 1. Upper endoscopy revealed mild antral gastritis with scattered erosions and small gastric polyps 2. Colonoscopy revealed 7 mm cecal polyp serous posterior polypectomy and scattered sigmoid diverticulosis Recommendations: Findings of this examination were discussed with the patient as well as her family. She was advised to follow with the biopsy results. If the biopsy does adenoma she can have a repeat colonoscopy in 5 years. In the meantime I recommend that she increase the Pepcid to 40 mg twice daily and follow antireflux measures
[2022-11-27 08:43] VITALS: BP 118/75; PULSE 78; RESP 16
== END 2022-11-27 09:11 | disposition home or self-care (01) ==
LOC: ORWHC2ENDO 06:30
PROVIDERS: ATTEND Internal Medicine Gastroenterology
DX: Z12.11 Encounter for screening for malignant neoplasm of colon (principal); K29.50 Unspecified chronic gastritis without bleeding; D12.0 Benign neoplasm of cecum; K31.7 Polyp of stomach and duodenum; K21.9 Gastro-esophageal reflux disease without esophagitis; K57.30 Diverticulosis of large intestine without perforation or abscess without bleeding; I10 Essential (primary) hypertension; E78.5 Hyperlipidemia, unspecified; G47.33 Obstructive sleep apnea (adult) (pediatric); J45.909 Unspecified asthma, uncomplicated; Z79.899 Other long term (current) drug therapy; Z88.1 Allergy status to other antibiotic agents; Z88.8 Allergy status to other drugs, medicaments and biological substances; Z91.040 Latex allergy status
CPT/HCPCS: 88305; 45385; 43239; J2704; J2001

== ENCOUNTER → 2022-12-02 | Outpatient (CLI) | payer MEDICAID, BC ==
--- NOTE | 2022-12-02 15:04 | P.PN ---
Subjective DATE: 12/02/2022 FOLLOW UP VISIT. Patient with obstructive sleep apnea hypopnea syndrome return to sleep center for follow-up visit. Information from previous visit have been reviewed. Patient is using PAP equipment every night for the whole night, getting PAP supplies in time. The patient does not have significant problems with the mask, PAP unit and humidification. [place] sleepiness scale is 2, which is normal. I checked information from PAP unit. PAP unit pressure 7 cm H2O. Usage is 100 % for more then 4 hours, average 8 hours per night. Leak is 19.7 l/m, which is in acceptable range. Apnea Hypopnea Index is 0.6, which is normal. MEDICATIONS:1. Rosuvastatin 5 mg once a day 2. Metformin 500 mg twice a day 3. Pepcid 20 mg twice a day 4. Solifenacin 10 mg once a day During physical exam: GENERAL: A pleasant patient without any distress. VITAL SIGNS: BP 114/79, HR 77, RR 12, weight 188.2, temperature 98.1, oxygen saturation at room air 95 % . HEENT: PERRLA, EOMI.low position of soft palate, Mallapati 4 . NECK: Supple. No JVD. LUNGS: Clear to percussion and to auscultation. Good air exchange. No wheezing or rhonchi. HEART: S1, S2 regular. ABDOMEN: Soft and nontender.[] EXTREMITIES: No clubbing or cyanosis. DOOR SERVICEMAN: Awake, alert, and oriented x3. No focal deficit. Impressions: 1. Obstructive sleep apnea-hypopnea syndrome. Patient demonstrated great compliance with treatment, benefiting from treatment. 2. Obesity, BMI 37.3. 3. Diabetes mellitus. 4. hyperlipidemia. 5. acid reflux. 6. Status post bilateral knee replacement. Plan: 1. Continue using PAP equipment every night for the whole night. I changed regimen over the machine to Auto Range of pressure 5-10 cm of water. 2. To change air filter at least 1-2 times per month. 3. PAP unit should stay lower then position of the head. 4. Advised patient to remove all remaining water from humidifier canister daily and make it dry after each usage. Refill canister with fresh distilled water before each usage. 5. Sleep hygiene with regular time in bed for at least 8 hours. 6. Precautions related to driving. No driving if feel any sleepiness. 7. I will maintain prescription for PAP supplies including mask, tube, filters. 8. Watching and losing weight. 9. Follow up visit in 6 months or earlier if patient has any problems. Thank you very much for allowing me to participate in the management of your patient. Charlie Chávez MD, PhD, FAASM. Diplomat of [place] [employer], Sleep Medicine Board by [place] [employer] Ict Educator of [facility] [place]
== END ==
LOC: SLEEP 14:16
PROVIDERS: ATTEND Internal Medicine
DX: G47.33 Obstructive sleep apnea (adult) (pediatric) (principal); E11.9 Type 2 diabetes mellitus without complications; E66.9 Obesity, unspecified; E78.5 Hyperlipidemia, unspecified; K21.9 Gastro-esophageal reflux disease without esophagitis; Z68.37 Body mass index [BMI] 37.0-37.9, adult; Z79.84 Long term (current) use of oral hypoglycemic drugs; Z79.899 Other long term (current) drug therapy; Z96.653 Presence of artificial knee joint, bilateral; Z99.89 Dependence on other enabling machines and devices; Z88.1 Allergy status to other antibiotic agents; Z88.8 Allergy status to other drugs, medicaments and biological substances; Z91.040 Latex allergy status
CPT/HCPCS: 99212

== ENCOUNTER → 2023-03-04 | Outpatient (CLI) | payer MEDICAID, BC | END | disposition home or self-care (01) | LOC: LABWHC1 07:56 | PROVIDERS: ATTEND Internal Medicine Endocrinology, Diabetes & Metabolism | DX: Z53.9 Procedure and treatment not carried out, unspecified reason (principal) ==

== ENCOUNTER → 2023-03-19 | Outpatient (CLI) | payer OTHER ==
--- NOTE | 2023-03-19 16:12 | XR ---
EXAMINATION TYPE: XR hand complete 3 views RT, XR femur 2 views RT DATE OF EXAM: 03/19/2023 COMPARISON: NONE HISTORY: 58-year-old female complaining of pain after fall. S60.221A, S70.11XA. FINDINGS: Hand: Mild to moderate degenerative change first CMC joint. Severe degenerative change at the triscaphe kavon nt with severe joint space narrowing, subchondral sclerosis, and marginal spurring. Mild degenerative spurring at the second MCP joint no acute fracture, subluxation, dislocation seen. Right femur: Hip joint space is maintained. No acute fracture, subluxation, dislocation. Phleboliths in the right side of the pelvis. There is a right total knee arthroplasty. Both distal femoral and proximal tibia l components of the prosthesis appear well seated without progressive fracture. Alignment grossly marilou tomic. No sizable knee joint effusion is seen. IMPRESSION: 1. Right hand: [id number] first CMC joint OA. Severe triscaphe joint OA. Mild degenerative trotter ge at the second MCP joint. No acute osseous abnormality seen. 2. Right femur: Uncomplicated appearance to the right total knee arthroplasty. Hip appears intact. No acute osseous abnormality seen.
== END | disposition home or self-care (01) ==
LOC: RADXRMAIN 15:33
PROVIDERS: ATTEND Emergency Medicine
DX: S60.221A Contusion of right hand, initial encounter (principal); S70.11XA Contusion of right thigh, initial encounter; M18.11 Unilateral primary osteoarthritis of first carpometacarpal joint, right hand; Z96.651 Presence of right artificial knee joint; X58.XXXA Exposure to other specified factors, initial encounter

== ENCOUNTER → 2023-03-23 | Outpatient (CLI) | payer MEDICAID, BC ==
--- NOTE | 2023-03-23 18:41 | BD ---
EXAMINATION TYPE: Axial Bone Density DATE OF EXAM: 03/23/2023 CLINICAL HISTORY: 58 years old Female. ICD-10 CODE: N95.1 POST MENOPAUSAL SYMPTOMS M85.88 OTHER DISO RDER OF BONE Height: 59.5" Weight: 175.9 FRAX RISK QUESTIONS: Alcohol (3 or more units per day): No Family History (Parent hip fracture): No Glucocorticoids (More than 3mos): No (Ex: prednisone, prednisolone, methylprednisolone, dexamethasone, and hydrocortisone). History of Fracture in Adulthood: No Secondary Osteoporosis: 1. Type 1 Diabetes: No 2. Hyperthyroidism: No 3. Menopause before 45: Possibly, patient wasn't sure 4. Malnutrition: No 5. Chronic liver disease: No Rheumatoid Arthritis: No Current Tobacco Use: No RISK FACTORS HISTORY OF: Hip Fracture (Right/Left): No When: Spine Fracture: No When: History of Wrist Fracture: No When: Surgery to Spine/Hip(right/left)/Wrist (right/left): Yes, ganglion cyst removal When: Many years ago Family History of Osteoporosis: Mother Active: Yes Diet low in dairy products/other sources of calcium: Yes Postmenopausal woman: Yes Lost more than 2 inches in height since high school: No Frequent falls: Typically no Poor Health: No Hyperparathyroidism: No Adrenal Insufficiency: No MEDICATIONS: Prednisone or other steroids: No Thyroid Medications: No Osteoporosis Medications: No Additional Medications: Metformin, Monjaro, Blood pressure medication, Crestor, Pepcid, Vitamin D, Ca lcium, baby aspirin Additional History: None EXAM MEASUREMENTS: Bone mineral densitometry was performed using the mobicanvas System. Bone mineral density as measured about the Lumbar spine is: ----- L1-L4(G/cm2): 1.295 T Score Values are as follows: ----- L1: 0.1 ----- L2: 0.5 ----- L3: 1.8 ----- L4: 1.1 ----- L1-L4: 1.0 Z Score Values are as follows: ----- L1: 0.8 ----- L2: 1.2 ----- L3: 2.5 ----- L4: 1.8 ----- L1-L4: 1.7 Bone mineral density has: increased 3.1% since study of: 02/04/2021 Bone mineral density about the R hip (g/cm2): 0.935 Bone mineral density about the L hip (g/cm2): 0.967 T Score values are as follows: -----R Neck: -1.4 -----L Neck: -1.1 -----R Total: -0.6 -----L Total: -0.3 Z Score values are as follows: -----R Neck: -0.5 -----L Neck: -0.2 -----R Total: 0.0 -----L Total: 0.2 Bone mineral density has: increased 2.5% since study of: 02/04/2021 FRAX%s: The graph provided illustrates a 7.1% chance for a major osteoporotic fx and a 0.5% chance fo r the hips probability for fx in 10 years time. IMPRESSION: Osteopenia (T Score between -2.5 and -1). There is slightly increased risk of fracture and the patient may be considered for treatment. Re-Screen 2-5 years. NOTE: T-SCORE=SD OF THE YOUNG ADULT MEAN.
--- NOTE | 2023-03-24 07:54 | MM ---
Reason for Exam: Screening (asymptomatic). Last mammogram was performed 1 year(s) and 2 month(s) ago. Patient History: Menarche at age 10. First Full-Term at age 19. Postmenopausal. 02/19/2020, Benign Core Biopsy on the left side. Paternal aunt had breast cancer. Risk Values: Bing 5 year model risk: 1.5%. NCI Lifetime model risk: 7.7%. Prior Study Comparison: 09/04/2020 Left Diagnostic Mammogram, [facility]. 02/04/2021 Bilateral Screening Mammogram, [facility]. 02/05/2022 Bilateral MG screening mammo w CAD, [facility]. Tissue Density: There are scattered fibroglandular densities. Findings: Analyzed By CAD. There is no suspicious group of microcalcifications or new suspicious mass in either breast. Chronic nodularity within both breasts. Biopsy clip are demonstrated within the left breast. Benign bilateral secretory calcification is redemonstrated. Slight nipple retraction on the left remains a chronic finding. No significant change from prior exams. Overall Assessment: Benign, BI-RAD 2 Management: Screening Mammogram of both breasts in 1 year. A clinical breast exam by your physician is recommended on an annual basis and results should be correlated with mammographic findings. Note on Bing scores and lifetime risk: 1. A Bing score greater than 3% is considered moderate risk. If this is the case, consider specialist referral to assess eligibility for a risk reducing agent. If overall lifetime risk for the development of breast cancer is 20% or higher, the patient may qualify for future screening with alternating mammogram and breast MRI. Electronically signed and approved by: José Manuel Boyd D.O.
== END | disposition home or self-care (01) ==
LOC: RADMAMWWP 14:51
PROVIDERS: ATTEND Obstetrics & Gynecology
DX: Z12.31 Encounter for screening mammogram for malignant neoplasm of breast (principal); M85.89 Other specified disorders of bone density and structure, multiple sites; Z78.0 Asymptomatic menopausal state
CPT/HCPCS: 77067; 77080

== ENCOUNTER → 2023-06-02 | Outpatient (CLI) | payer MEDICAID, BC ==
--- NOTE | 2023-06-02 18:43 | P.PN ---
Subjective DATE: 06/02/2023 FOLLOW UP VISIT. Patient with obstructive sleep apnea hypopnea syndrome return to sleep center for follow-up visit. Information from previous visit have been reviewed. Patient is using PAP equipment every night for the whole night, getting PAP supplies in time. The patient does not have significant problems with the mask, PAP unit and humidification. [place] sleepiness scale is 0. I checked information from PAP unit. PAP unit pressure 5-10, average 9.5 cm H2O. Usage is 73 % for more then 4 hours, average 7 hours per night. Leak is 31.0 l/m, which is in acceptable range. Apnea Hypopnea Index is 0.7, which is normal. MEDICATIONS:1. Metformin 500 mg twice a day 2. Rosuvastatin 5 mg once a day 3. Pepcid 40 mg twice a day 4. Solifenacin 10 mg once a day During physical exam: GENERAL: A pleasant patient without any distress. VITAL SIGNS: BP 111/73, HR 78, RR 18, weight 172.4, temperature 97.9, oxygen saturation at room air 95 % . HEENT: PERRLA, EOMI.low position of soft palate, Mallapati 4 . NECK: Supple. No JVD. LUNGS: Clear to percussion and to auscultation. Good air exchange. No wheezing or rhonchi. HEART: S1, S2 regular. ABDOMEN: Soft and nontender.[] EXTREMITIES: No clubbing or cyanosis. PORTRAIT PHOTOGRAPHER: Awake, alert, and oriented x3. No focal deficit. Impressions: 1. Obstructive sleep apnea-hypopnea syndrome. Patient demonstrated good compliance with treatment, benefiting from treatment. 2. Diabetes mellitus. 3. Hyperlipidemia. 4. Acid reflux. 5. Status post bilateral knee replacement. 6. Obesity, patient lost 16 pounds since previous visit. Plan: 1. Continue using PAP equipment every night for the whole night. 2. To change air filter at least 1-2 times per month. 3. PAP unit should stay lower then position of the head. 4. Advised patient to remove all remaining water from humidifier canister daily and make it dry after each usage. Refill canister with fresh distilled water before each usage. 5. Sleep hygiene with regular time in bed for at least 8 hours. 6. Precautions related to driving. No driving if feel any sleepiness. 7. I will maintain prescription for PAP supplies including mask, tube, filters. 8. Follow up visit in 6 months or earlier if patient has any problems. 9. Watching weight. Thank you very much for allowing me to participate in the management of your patient. Charlie Chávez MD, PhD, FAASM. Diplomat of [place] [employer], Sleep Medicine Board by [place] [employer] Patient Services Technician of [facility] [place]
== END ==
LOC: 3 N SLEEP 14:32
PROVIDERS: ATTEND Internal Medicine
DX: G47.33 Obstructive sleep apnea (adult) (pediatric) (principal); E11.9 Type 2 diabetes mellitus without complications; E66.9 Obesity, unspecified; E78.5 Hyperlipidemia, unspecified; K21.9 Gastro-esophageal reflux disease without esophagitis; Z79.84 Long term (current) use of oral hypoglycemic drugs; Z79.899 Other long term (current) drug therapy; Z96.653 Presence of artificial knee joint, bilateral; Z99.89 Dependence on other enabling machines and devices; Z88.8 Allergy status to other drugs, medicaments and biological substances; Z91.040 Latex allergy status
CPT/HCPCS: 99212

== ENCOUNTER → 2023-06-17 | Outpatient (CLI) | payer MEDICAID, BC ==
[2023-06-17 16:44] LABS: % Iron Saturation 29.75 (12.00-45.00); T4, Free (Free Thyroxine) 1.65 ng/dL (0.80-1.80)
[2023-06-17 16:53] LABS: HCT 39.2 % (37.2-46.3); HGB 13.1 d/dL (12.0-15.0); MCH 30.8 pg (27.0-32.0); MCHC 33.4 d/dL (32.0-37.0); MCV 92.2 FL (80.0-97.0); NRBC Per 100 WBC 0 X 10*3/uL (0.00-0.01); Platelet Count 179 X 10*3/uL (140-440); RBC 4.25 X 10*6/uL (4.10-5.20); RDW 11.9 % (11.5-14.5); WBC 4.11 X 10*3/uL (4.50-10.00)
== END | disposition home or self-care (01) ==
LOC: LABWHC1 07:44
PROVIDERS: ATTEND Internal Medicine Endocrinology, Diabetes & Metabolism
DX: R68.89 Other general symptoms and signs (principal)
CPT/HCPCS: 36415; 82728; 83540; 83550; 84439; 84443; 85027

== ENCOUNTER → 2023-12-15 | Outpatient (CLI) | payer BC ==
[2023-12-15 15:28] VITALS: BP 96/91; PULSE 92; RESP 12; TEMP 98.7
--- NOTE | 2023-12-15 15:37 | P.PN ---
Subjective DATE: 12/15/2023 FOLLOW UP VISIT. Patient with obstructive sleep apnea hypopnea syndrome return to sleep center for follow-up visit. Information from previous visit have been reviewed. Patient is using PAP equipment every night for the whole night, getting PAP supplies in time. The patient does not have significant problems with the mask, PAP unit and humidification. [place] sleepiness scale is 3, which is in normal range. I checked information from PAP unit. PAP unit pressure 5-10, average 9.7 cm H2O. Usage is 100% and 83% for more then 4 hours, average 5.5 hours per night. Leak is increased to 38.6 l/m. Apnea Hypopnea Index is 2.1, which is normal. MEDICATIONS:1. Metformin 500 mg twice a day 2. Mary[place]uy 3. Rosuvastatin 5 mg once a day 4. Telmisartan 20 mg once a day During physical exam: GENERAL: A pleasant patient without any distress. VITAL SIGNS: Please see below, weight 161.8 pounds. HEENT: PERRLA, EOMI.low position of soft palate, Mallapati 4 . NECK: Supple. No JVD. LUNGS: Clear to percussion and to auscultation. Good air exchange. No wheezing or rhonchi. HEART: S1, S2 regular. ABDOMEN: Soft and nontender.[] EXTREMITIES: No clubbing or cyanosis. ANODE ADJUSTER: Awake, alert, and oriented x3. No focal deficit. Impressions: 1. Obstructive sleep apnea-hypopnea syndrome. Patient demonstrated great compliance with treatment, benefiting from treatment. 2. Hyperlipidemia. 3. Diabetes mellitus. 4. Acid reflux. 5. History of obesity, patient lost 11 pounds comparing with the previous visit. 6. Status post bilateral knee replacement. Plan: 1. Continue using PAP equipment every night for the whole night. 2. To change air filter at least 1-2 times per month. 3. PAP unit should stay lower then position of the head. 4. Advised patient to remove all remaining water from humidifier canister daily and make it dry after each usage. Refill canister with fresh distilled water before each usage. 5. Sleep hygiene with regular time in bed for at least 8 hours. 6. Precautions related to driving. No driving if feel any sleepiness. 7. I will maintain prescription for PAP supplies including mask, tube, filters. 8. Watching weight. 9. Follow up visit in 6 months or earlier if patient has any problems. Thank you very much for allowing me to participate in the management of your patient. Charlie Chávez MD, PhD, FAASM. Diplomat of [place] [employer], Sleep Medicine Board by [place] [employer] Boiler Operator of [facility] [place] Objective - Vital Signs Vital signs: Vital Signs Temp 98.7 F 12/15/23 15:04 Pulse 92 12/15/23 15:04 Resp 12 12/15/23 15:04 BP 96/91 12/15/23 15:04 Pulse Ox 95 12/15/23 15:04 FiO2 Intake & Output 12/14/23 12/15/23 12/15/23 18:59 06:59 18:59 Weight 73.028 kg
== END ==
LOC: 3 N SLEEP 14:23
PROVIDERS: ATTEND Internal Medicine
DX: G47.33 Obstructive sleep apnea (adult) (pediatric) (principal); E78.5 Hyperlipidemia, unspecified; E11.9 Type 2 diabetes mellitus without complications; E66.9 Obesity, unspecified; K21.9 Gastro-esophageal reflux disease without esophagitis; Z96.653 Presence of artificial knee joint, bilateral; Z99.89 Dependence on other enabling machines and devices; Z79.84 Long term (current) use of oral hypoglycemic drugs; Z68.32 Body mass index [BMI] 32.0-32.9, adult; Z88.1 Allergy status to other antibiotic agents; Z91.040 Latex allergy status; Z88.8 Allergy status to other drugs, medicaments and biological substances; Z79.85 Long-term (current) use of injectable non-insulin antidiabetic drugs
CPT/HCPCS: 99212

== ENCOUNTER → 2024-03-28 | Outpatient (CLI) | payer BC ==
--- NOTE | 2024-04-25 09:31 | MM ---
Reason for Exam: Screening (asymptomatic). Last screening mammogram was performed 12 month(s) ago. Patient History: Menarche at age 10. First Full-Term at age 19. Postmenopausal. 02/19/2020, Benign Core Biopsy on the left side. Paternal aunt had breast cancer. Risk Values: Bing 5 year model risk: 1.6%. NCI Lifetime model risk: 7.5%. Prior Study Comparison: 02/04/2021 Bilateral Screening Mammogram, [facility]. 02/05/2022 Bilateral MG screening mammo w CAD, [facility]. 03/23/2023 Bilateral MG screening mammo w CAD, [facility]. Tissue Density: The breasts are almost entirely fatty. Findings: Analyzed By CAD. Left breast biopsy clip. Right breast: There is no suspicious group of microcalcifications or new suspicious mass. Benign-appearing calcifications right breast. Left breast: There is no suspicious group of microcalcifications or new suspicious mass. Benign-appearing calcifications left breast. Overall Assessment: Benign, BI-RAD 2 Management: Screening Mammogram of both breasts in [address] [facility] will attempt to contact patient to return for supplemental views and ultrasound if indicated. Patient should continue monthly self-breast exams. A clinical breast exam by your physician is recommended on an annual basis. This exam should not preclude additional follow-up of suspicious palpable abnormalities. Note on Bing scores and lifetime risk: 1. A Bing score greater than 3% is considered moderate risk. If this is the case, consider specialist referral to assess eligibility for a risk reducing agent. 2. If overall lifetime risk for the development of breast cancer is 20% or higher, the patient may qualify for future screening with alternating mammogram and breast MRI. Electronically signed and approved by: Dimas Delgado DO
== END | disposition home or self-care (01) ==
LOC: RADMAMWWP 10:41
PROVIDERS: ATTEND Obstetrics & Gynecology
DX: Z12.31 Encounter for screening mammogram for malignant neoplasm of breast (principal); Z78.0 Asymptomatic menopausal state; Z80.3 Family history of malignant neoplasm of breast; R92.313 Mammographic fatty tissue density, bilateral breasts
CPT/HCPCS: 77067

== ENCOUNTER → 2024-05-11 | Outpatient (CLI) | payer BC ==
--- NOTE | 2024-05-11 08:24 | US ---
EXAMINATION TYPE: US carotid duplex BILAT DATE OF EXAM: 05/11/2024 COMPARISON: NONE CLINICAL INDICATION: Female, 59 years old with history of I65.23 STENOSIS; Intermittent dizziness TECHNIQUE: Carotid duplex ultrasound examination. Indirect Doppler criteria was utilized. FINDINGS: EXAM MEASUREMENTS: RIGHT: Peak Systolic Velocity (PSV) cm/sec ----- Right CCA: 76.3 ----- Right ICA: 87.9 ----- Right ECA: 129 ICA/CCA ratio: 1.15 RIGHT: End Diastole cm/sec ----- Right CCA: 25.2 ----- Right ICA: 42.1 ----- Right ECA: 28.6 LEFT: Peak Systolic Velocity (PSV) cm/sec ----- Left CCA: 79.2 ----- Left ICA: 110 ----- Left ECA: 90.1 ICA/CCA ratio: 1.39 LEFT: End Diastole cm/sec ----- Left CCA: 36.2 ----- Left ICA: 33.0 ----- Left ECA: 21.2 VERTEBRALS (direction of flow): Right Vertebral: Antegrade Left Vertebral: Antegrade Rhythm: Normal MANAGER ELECTRICAL NOTES: Mild plaque bilateral bifurcations. No evidence of significant stenosis IMPRESSION: Atheromatous plaquing without significant flow-limiting stenosis based on velocities Criteria for Assigning % of Stenosis / Diameter reduction (Estimation based on the indirect measurements of the internal carotid artery velocities (ICA PSV). 1. Normal (no stenosis)=ICA PSV < 125 cm/s: ratio < 2.0: ICA EDV<40 cm/s. 2. Less than 50% stenosis=ICA PSV < 125 cm/s: ratio < 2.0: ICA EDV<40 cm/s. 3. 50 to 69% stenosis=ICA PSV of 125 to 230 cm/s: ration 2.0 ? 4.0: ICA EDV 40-100 cm/s. 4. Greater than 70% stenosis to near occlusion= ICA PSV > 230 cm/s: ratio > 4.0: ICA EDV > 100 cm/s. 5. Near occlusion= ICA PSV velocities may be low or undetectable: variable ratio and ICA EDV. 6. Total occlusion=unable to detect flow. [facility], , 05/11/2024 8:21 AM
== END | disposition home or self-care (01) ==
LOC: RADUSWWP 07:47
PROVIDERS: ATTEND Internal Medicine
DX: I65.23 Occlusion and stenosis of bilateral carotid arteries
CPT/HCPCS: 93880

== ENCOUNTER → 2024-06-08 | Outpatient (CLI) | payer BC ==
[2024-06-08 15:28] LABS: Basophils # (A) 0.01 X 10*3/uL (0.00-0.10); Basophils % (A) 0.2 %; Eosinophils # (A) 0.13 X 10*3/uL (0.04-0.35); Eosinophils % (A) 2.8 %; HCT 39.6 % (37.2-46.3); HGB 13.5 g/dL (12.0-15.0); Lymphocytes % (A) 29.7 %; MCH 31.3 pg (27.0-32.0); MCHC 34.1 g/dL (32.0-37.0); MCV 91.9 FL (80.0-97.0); Mean Platelet Volume 10.1 FL (9.5-12.2); Monocytes # (A) 0.31 X 10*3/uL (0.20-1.00); Monocytes % (A) 6.6 %; NRBC Per 100 WBC 0 X 10*3/uL (0.00-0.01); Neutrophils # (A) 2.86 X 10*3/uL (1.80-7.70); Neutrophils % (A) 60.5 %; Platelet Count 180 X 10*3/uL (140-440); RBC 4.31 X 10*6/uL (4.10-5.20); RDW 12.1 % (11.5-14.5); WBC 4.72 X 10*3/uL (4.50-10.00)
[2024-06-08 15:37] LABS: Blood Urea Nitrogen 22.2 mg/dL (9.0-27.0); Carbon Dioxide 25.9 mmol/L (21.6-31.8); Chloride 103 mmol/L (96-109); Glucose 90 mg/dL (70-110); Sodium 141 mmol/L (135-145)
== END | disposition home or self-care (01) ==
LOC: LABWHC1 09:56
PROVIDERS: ATTEND Obstetrics & Gynecology
CPT/HCPCS: 36415; 80051; 82565; 82947; 84520; 85025; 86850; 86900; 86901; 87086

== ENCOUNTER 2024-06-15 05:38 | Day surgery (SDC) | payer BC ==
--- NOTE | 2024-06-14 23:04 | HP ---
HISTORY AND PHYSICAL DATE OF SURGERY: 06/15/2024. HISTORY OF PRESENT ILLNESS: The patient is a 59-year-old, 5, para 5-0-0-5, who presented to the office with longstanding complaints of symptoms of prolapse with significant pressure and generalized pelvic discomfort. She has discontinued sexual activity secondary to the discomfort. She had scheduled for hysterectomy at another institution, which fell through secondary to the surgeon taking medical leave of absence. She had been scheduled at the time of my evaluation to be evaluated by Urology for possible Monarc suburethral sling for stress urinary incontinence. She presents today to have evaluation for concomitant repair of prolapse and would like to proceed with surgical scheduling. The previous pitching coach was planning da Sharmaine approach. PAST MEDICAL HISTORY: Significant for asthma, history of colon or bowel issues, type 2 diabetes, relatively frequent urinary tract infections, hypertension, irritable bowel syndrome, and urinary incontinence as noted in history of present illness. PAST SURGICAL HISTORY: Significant for ganglion cyst removal, bilateral knee replacements in 2013, NovaSure endometrial ablation, radial keratotomy, and tubal ligation. There was no apparent history of any anesthetic concerns. OBSTETRICAL HISTORY: 5, para 5-0-0-5 with 5 term vaginal deliveries without complications. Method of contraception was tubal ligation and menopause. GYNECOLOGIC HISTORY: Unremarkable except as noted in history of present illness. Pap smears have always been normal and there is no history of any infections. FAMILY HISTORY: Noncontributory. 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 She is a nonsmoker and denies any significant alcohol or any other social concerns. CURRENT MEDICATIONS: Include, 1. Famotidine 20 mg at bedtime. 2. Metformin 500 mg twice daily. 3. Mounjaro 10 mg once weekly. 4. Pepcid 40 mg twice daily. 5. Premarin vaginal cream twice weekly. 6. Rosuvastatin 5 mg daily. 7. Telmisartan 20 mg once daily. 8. VESIcare 10 mg once daily. ALLERGIES: Bacitracin, Cymbalta, Flonase, latex, and perfumes. REVIEW OF SYSTEMS: Confined to history of present illness. PHYSICAL EXAMINATION: VITAL SIGNS: Stable. The patient is afebrile. GENERAL: This is a well-developed, well-nourished white female, in no acute distress. HEART: Has a regular rhythm and rate without murmur. LUNGS: Clear to auscultation bilaterally in all [place]. ABDOMEN: Nondistended, has normoactive bowel sounds, soft, nontender, without any palpable masses, hepatosplenomegaly, or hernias. EXTREMITIES: Without any cyanosis, clubbing, or edema and are nontender to palpation. PELVIC: Demonstrates a grade 2 to 3 uterine prolapse with a grade 3 cystocele. Uterus is anteverted, atrophic in size, mobile, nontender, normal in shape. The adnexa are normal and nontender without any apparent masses bilaterally. ASSESSMENT AND PLAN: 1. Symptomatic uterine prolapse and cystocele. 2. Stress urinary incontinence. PLAN: To proceed with vaginal hysterectomy with anterior colporrhaphy, possible bilateral salpingo-oophorectomy, and any other indicated surgery. She will then have a Monarc suburethral sling performed by Dr. Lozano. The risks and complications of my portions of the procedure have been thoroughly discussed including the risks for bleeding, bleeding requiring transfusion, infection, and injury to local structures to specifically include injury to the bowel, bladder, and ureters. We discussed the typical hospital and postoperative courses. She has understood all of this and has agreed to proceed. We are scheduled for the procedures as outlined above on the morning of 06/15/2024. MMODL / IJN: [id number] /
[~2024-06-15 05:38] MED LIST changes: +GENTAMICIN 80 MG in SODIUM CHLORIDE 0.9% 100 ML IVPB PRN; -LACTATED RINGERS 1,000 ML IV SCH
[2024-06-15] MEDS ORDERED: HYDROmorphone 0.5 MG/0.5 ML SYRINGE IVP PRN (05:52)
[2024-06-15] MEDS: SCOPOLAMINE 1 MG/72 HR PATCH TRANSDERM ONE (06:20)
[2024-06-15] MEDS: LIDOCAINE 1% (10MG/ML) FOR IV START INTRADERMA PRN (06:21)
[2024-06-15] MEDS: LACTATED RINGERS 1,000 ML IV SCH ×2 (06:21→21:05)
[2024-06-15] MEDS: IV FLUID CONTINUATION 1,000 ML IV ONE ×2 (06:21→10:14)
[2024-06-15 06:31] LABS: Glucose,Whole Blood 100 mg/dL (70-110)
[2024-06-15] MEDS: ONDANSETRON 4 MG/2 ML VIAL IVP ONE (06:34)
[2024-06-15] MEDS: DEXAMETHASONE SOD PHOSPHATE 4 MG/ML 1 ML VIAL IVP STA (06:35)
--- NOTE | 2024-06-15 06:41 | P.GSHP ---
History of Present Illness H&P Date: 06/14/24 Chief Complaint: Mixed urinary incontinence The patient is a 59-year-old white female with a history of mixed urinary incontinence dating back to at least 2015. The urge component is predominant, and has required the use of up to 2 pads daily. She takes Solifenacin 10 mg da manish. She has undergone urodynamic testing, revealing normal bladder capacity and adequate bladder emptying. The Valsalva leak point pressure is 95 cm water. Examination reveals a grade 2 cystocele and mild urethral hypermobility. Dr. Panda is performing a TVH with anterior repair, and a TOT sling will be performed concurrently. - Cardiovascular Cardiovascular: Reports high blood pressure - Genitourinary (Female) Genitourinary: Reports as per HPI Past Medical History Past Medical History: Asthma, Diabetes Mellitus, GERD/Reflux, Hyperlipidemia, Hypertension, Pneumonia, Skin Disorder, Sleep Apnea/CPAP/BIPAP Additional Past Medical History / Comment(s): hx. bronchitis; hx of ezcema; hx. shingles left side 2020; uses CPAP History of Any Multi-Drug Resistant Organisms: None Reported Past Surgical History: Orthopedic Surgery, Tubal Ligation, Uterine Ablation Additional Past Surgical History / Comment(s): D&C. Jose knee replacement. Left wrist ganglion cyst removal. cataract surgery. benign needle bx left breast Past Anesthesia/Blood Transfusion Reactions: Motion Sickness, Postoperative Nausea & Vomiting (PONV) Smoking Status: Never smoker - Past Family History Father Family Medical History: Diabetes Mellitus Mother Family Medical History: Coronary Artery Disease (CAD), Diabetes Mellitus Medications and Allergies Home Medications Medication Instructions Recorded Confirmed Type Aspirin [[place] Aspirin EC] 1 each PO DAILY 02/14/20 06/08/24 History Rosuvastatin Calcium [Crestor] 5 mg PO HS 02/14/20 06/08/24 History Albuterol Inhaler [Ventolin Hfa 1 puff INHALATION DIRECTED PRN 11/24/22 06/08/24 History Inhaler] Ergocalciferol [Vitamin D2 (1250 1 cap PO VELA 11/24/22 06/08/24 History Mcg = 17273 Iu)] Famotidine [Pepcid] 40 mg PO BID 11/24/22 06/08/24 History Solifenacin Succinate [Vesicare] 10 mg PO HS 11/24/22 06/08/24 History Telmisartan 10 mg PO QAM 11/24/22 06/08/24 History Tirzepatide [Mounjaro] 12.5 mg SQ TU 11/24/22 06/08/24 History metFORMIN HCL ER [Glucophage XR] 500 mg PO BID 11/24/22 06/08/24 History Estrogens, Conjugated Cream 1 applicator VAGINAL HS 06/08/24 06/08/24 History [Premarin Vaginal Cream] Allergies Allergy/AdvReac Type Severity Reaction Status Date / Time bacitracin Allergy Rash/Hives Verified 06/15/24 06:02 duloxetine [From Cymbalta] Allergy Rash/Hives Verified 06/15/24 06:02 fluticasone [From Flonase] Allergy Swelling Verified 06/15/24 06:02 latex Allergy Swelling Verified 06/15/24 06:02 lisinopril Allergy Unknown Verified 06/15/24 06:02 Surgical - Exam - General well developed, well nourished, no distress - Respiratory normal respiratory effort - Abdomen Abdomen: soft, non tender, no guarding, no rigid, no rebound - Genitourinary Normal vulva, normal urethral meatus. A grade 2 cystocele is noted, and there is evidence of mild urethral hypermobility. Stress incontinence is not demonstrated, even with reduction of the cystocele. - Psychiatric oriented to time, oriented to person, oriented to place, speech is normal, memory intact Assessment and Plan (1) Mixed urinary incontinence due to female genital prolapse Current Visit: Yes Status: Acute Code(s): N39.46 - MIXED INCONTINENCE; N81.9 - FEMALE GENITAL PROLAPSE, UNSPECIFIED SNOMED Code(s): 701295054 Plan: Obtryx sling. The procedure has been reviewed in detail with the patient. She has been made aware of potential risks, which include anesthesia, bleeding, infection, graft erosion, persistent incontinence, and postoperative urinary retention. The controversy surrounding the use of mesh has also been discussed.
[2024-06-15] MEDS: fentaNYL (PF) 50 MCG/ML 2 ML AMP IVP PRN (06:45)
[2024-06-15] MEDS: MIDAZOLAM 2 MG/2 ML VIAL IV ONE (06:45)
--- NOTE | 2024-06-15 07:06 | P.ANPRN ---
Procedure Note - Anesthesia - Epidural/Spinal Spinal Time Out Performed: Yes Date of Procedure: 06/15/24 Procedure Start Time: 06:45 Procedure Stop Time: 06:55 Location of Patient: PreOp Indication: Acute Post-Operative Pain, Requested by Surgeon Sedation Type: Sedate with meaningful contact maintained Preparation: Sterile Prep Position: Sitting Needle Guage: 25 Blood Aspirated: No Pain Paresthesia on Injection Noted: No Events: Uneventful and Well Tolerated (Duramorph 300 mcg + 25 mcg Fentanyle injected intrathhecally)
[2024-06-15] MEDS ORDERED: ePHEDrine 50 MG/ML 1 ML VIAL ONE (07:38)
[2024-06-15] MEDS ORDERED: LIDOCAINE 1% INJ 10MG/ML (20 ML MDV) ONE (07:38)
[2024-06-15] MEDS ORDERED: fentaNYL (PF) 50 MCG/ML 2 ML AMP ONE (07:38)
[2024-06-15] MEDS ORDERED: KETOROLAC 15 MG/ML 1 ML VIAL ONE (07:38)
[2024-06-15] MEDS ORDERED: diphenhydrAMINE 50 MG/ML 1 ML VIAL ONE (07:38)
[2024-06-15] MEDS ORDERED: PROPOFOL 10 MG/ML 20 ML VIAL IV ONE (07:38)
[2024-06-15] MEDS ORDERED: SUCCINYLCHOLINE CHLORIDE 200 MG/10 ML VIAL IV ONE (07:38)
[2024-06-15] MEDS: VASOPRESSIN 20 UNIT/ML 1 ML VIAL SQ ONE ×2 (08:01→08:34)
[2024-06-15] MEDS: GENTAMICIN 80 MG in SODIUM CHLORIDE 0.9% 500 ML 500 ML IRRIGATION ONE (08:09)
[2024-06-15] MEDS ORDERED: ONDANSETRON 4 MG/2 ML VIAL IVP PRN (08:52)
[2024-06-15] MEDS ORDERED: MORPHINE SULFATE 2 MG/ML SYRINGE IVP PRN (08:52)
[2024-06-15] MEDS ORDERED: diphenhydrAMINE 50 MG/ML 1 ML VIAL IVP PRN (08:52)
[2024-06-15] MEDS ORDERED: NALOXONE 0.4 MG/ML 1 ML VIAL IV PRN (08:52)
[2024-06-15] MEDS ORDERED: SIMETHICONE 80 MG CHEWABLE PO PRN (09:03)
[2024-06-15] MEDS ORDERED: METOCLOPRAMIDE 5 MG/ML 2 ML VIAL IVP PRN (09:03)
--- NOTE | 2024-06-15 09:16 | P.OP ---
Date of Procedure: 06/15/24 Preoperative Diagnosis: #1. Symptomatic grade 2+ uterine prolapse #2. Symptomatic grade 3 cystocele #3. Stress urinary incontinence Postoperative Diagnosis: Same Procedure(s) Performed: #1. Vaginal hysterectomy #2. Left salpingo-oophorectomy #3. Right salpingectomy #4. Anterior colporrhaphy Anesthesia: OSCAR Surgeon: Raad Panda Side Stapler #1: Cristal Doran Estimated Blood Loss (ml): 20 IV fluids (ml): 300 Urine output (ml): 310 Pathology: other (Uterus, bilateral fallopian tubes, left ovary) Condition: stable Disposition: other (Remains in OR for completion of procedure) Operative Findings: Preoperative pelvic examination confirmed the findings in the office of a grade 3 cystocele with grade 2+ uterine prolapse. Intraoperatively, the bilateral ovaries were entirely atrophic. The left ovary was significantly high in the pelvis and unable to be delivered into a position to be removed. It was streak in nature, perhaps half a centimeter by half a centimeter by 2 cm in size. Description of Procedure: The patient was prepped and draped in usual fashion after general endotracheal anesthesia was administered by the anesthesiologist. A weighted speculum was placed and the bladder was drained of approximately 180 cc of clear luis urine. The cervix was grasped with a double-tooth tenaculum and the cervical vaginal mucosa infused with diluted vasopressin solution. An incision was made through the mucosa at the cervical vaginal junction and the mucosa reflected distally both sharply and bluntly. In the process of dissecting the mucosa distally, the posterior peritoneum was entered. A long weighted speculum was placed after removing the short weighted speculum. After ensuring adequate dissection anteriorly of the bladder, curved [address] clamps were utilized to clamp the uterosacral ligament on each side. Each was cut, and suture ligated with a transfixion stitch of 0 Vicryl. Serial bites were taken up the cardinal ligament towards the utero-ovarian pedicles on each side, perhaps 1-2 on each side. Each was clamped, cut, and suture-ligated with a transfixion stitch of 0 Vicryl. The uterus was anteverted somewhat posteriorly and the anterior peritoneum easily identified and opened sharply with a Bovie. This isolated the utero-ovarian pedicles on each side which were clamped, cut, and suture-ligated with a transfixion stitch of 0 Vicryl followed by a free tie of 0 Vicryl. On the left side, the fallopian tube and ovary were within view and grasped with an Allis clamp and brought into the field. They were then clamped across the infundibulopelvic ligament with a curved [address] clamp, cut and the specimen passed for pathological diagnoses. The pedicle was suture-ligated with a transfixion stitch of 0 Vicryl followed by a free tie of 0 Vicryl. Careful inspection demonstrated excellent hemostasis along the entire left side of pedicles. On the right side, the fallopian tube was seen and grasped with the right ovary was significantly high in the pelvis to palpation and was streaky in nature. The decision was made to leave it in place. The right fallopian tube was brought down into the field, clamped with a curved [address] clamp, cut, and ligated with a stitch of 0 Vicryl. Careful inspection demonstrated excellent hemostasis on the left side as well. The long weighted speculum was then replaced with a short weighted speculum. The posterior peritoneum was identified at 6:00 and a stitch of 2-0 Vicryl utilized to close the parietal peritoneum and a pursestring fashion. All pedicles remained dry. The bilateral uterosacral ligaments were used to create a modified Campos's culdoplasty with each side being suture-ligated through the other uterosacral on the contralateral side as well as vaginal mucosa and then firmly tied down. The overlying and intervening unclosed vaginal mucosa posteriorly was closed with interrupted [id number] stitches of 0 Vicryl. On the anterior portion of the vaginal incision, Allis clamps were placed and the vesicovaginal mucosa infused with diluted vasopressin solution. It was undermined in the midline with a Metzenbaum scissors and divided with Allis clamps placed along the margins. The overlying mucosa was dissected from the underlying tissues. After adequate dissection and reflection had been carried out, serial Nidia plication stitches were placed beginning near the urethral apex using 2-0 PDS. After the entire defect had been adequately closed, the intervening vaginal mucosa was trimmed and the case transferred to Dr. Lozano. Estimated blood loss for my portion of the case was 20 mL. There were no complications. All sponge, instrument, and needle counts were correct as the case was passed to urology for [facility] suburethral sling with the patient in stable condition.
--- NOTE | 2024-06-15 10:04 | P.OP ---
Date of Procedure: 06/15/24 Preoperative Diagnosis: Mixed urinary incontinence Postoperative Diagnosis: Same Procedure(s) Performed: Obtryx subfascial sling Anesthesia: OSCAR Surgeon: Jalen Lozano Estimated Blood Loss (ml): 20 Pathology: none sent Condition: stable Disposition: PACU Indications for Procedure: The patient is a 59-year-old white female with mixed urinary incontinence. Urodynamic testing is consistent with type II stress urinary incontinence, and urethral hypermobility is noted on examination. She is scheduled to undergo a TVH with anterior repair, and a TOT sling is to be performed at that time. Operative Findings: Successful sling placement. Description of Procedure: I entered the operating room after Dr. Jordon Mac had completed the TVH with anterior repair. The patient was positioned in the dorsolithotomy position, with her legs supported in Rodrigo stirrups. A 16-Georgian Jaimes catheter was in place. Her condition was stable. It was possible to pass a fingertip through the vaginal incision toward the pubis on each side. The scalpel was used to make bilateral groin incisions at the level of the clitoris. Subcutaneous tissues were spread with a hemostat. Each of the helical needles were passed through the respective groin incision, and turned such that the needle tip wrapped around the pubis. The needle tips were guided digitally into the vaginal incision. Cystoscopy was performed. The 30 lens was used to introduce the 19-Georgian Storz cystoscopic sheath through the urethra and into the bladder under direct vision. The urethra and bladder were unremarkable. There was no evidence of perforation. Both ureteral orifices were of normal anatomic location and configuration, and clear urine effluxed from both. No tumors or foreign bodies were seen. The cystoscope was removed, and the Jaimes catheter was replaced into the bladder. The Obtryx graft, which had been previously soaked in antibiotic solution, was secured to the needle tips in the standard fashion. The needles were then withdrawn, and the position of the graft was adjusted such that it overlie the mid urethra, as desired. With a hemostat placed between the graft and the urethra to prevent tension of the graft over the urethra, the plastic sheath was removed from the ends of the graft. The ends of the graft were cut beneath the skin incisions, and these incisions were closed using 4-0 Vicryl suture in a subcuticular fashion. H emostasis within the vaginal incision was adequate, and the vaginal incision was closed using 2-0 Vicryl suture in a running fashion. Vaginal packing was placed. All sponge and needle counts were correct. Dermabond was applied to the groin incisions. The patient tolerated the procedure well was taken to the recovery room in stable condition.
[2024-06-15 10:55] LABS: Glucose,Whole Blood 129 mg/dL (70-110)
[2024-06-15] MEDS: NALBUPHINE 10 MG/ML (10 ML MDV) IV PRN (11:12)
[2024-06-15] MEDS: KETOROLAC 15 MG/ML 1 ML VIAL IVP PRN (15:52)
[2024-06-15] MEDS: droPERidol 5 MG/2 ML VIAL IVP ONE (21:04)
[2024-06-15] MEDS: SENNOSIDES-DOCUSATE SODIUM 1 EACH TAB PO SCH (22:05)
[2024-06-16] MEDS: ACETAMINOPHEN TAB 325 MG TAB PO PRN (01:53)
[2024-06-16 06:18] LABS: Basophils % (A) 0 %; Eosinophils % (A) 1 %; HCT 31.6 % (34.0-46.0); HGB 10.4 gm/dL (11.4-16.0); Lymphocytes # (A) 1.3 k/uL (1.0-4.8); Lymphocytes % (A) 27 %; MCHC 33.1 g/dL (31.0-37.0); MCV 96.8 fL (80.0-100.0); Monocytes # (A) 0.3 k/uL (0-1.0); Monocytes % (A) 6 %; Neutrophils # (A) 3.2 k/uL (1.3-7.7); Neutrophils % (A) 65 %; Platelet Count 110 k/uL (150-450); RBC 3.26 m/uL (3.80-5.40); RDW 12.5 % (11.5-15.5); WBC 4.9 k/uL (3.8-10.6)
[2024-06-16 07:36] VITALS: RESP 16
[2024-06-16 08:33] VITALS: BP 87/59; PULSE 73; TEMP 97.8
--- NOTE | 2024-06-16 09:35 | P.PN ---
Subjective Progress Note Date: 06/16/24 Principal diagnosis: POD #1, s/p Obtryx TOT sling The patient is reasonably comfortable. Vaginal packing and Jaimes catheter were removed this morning. As of now, the patient has not voided and has no urge to do so. Objective - Vital Signs Vital signs: Vital Signs Temp 98.1 F 06/16/24 00:30 Pulse 79 06/16/24 00:30 Resp 16 06/16/24 07:34 BP 94/53 06/16/24 00:30 Pulse Ox 98 06/16/24 07:34 FiO2 Intake & Output 06/15/24 06/16/24 06/16/24 18:59 06:59 18:59 Intake Total 651 Output Total 520 1300 Balance 131 -1300 Weight 69.2 kg Intake: IV 651 Output: Urine 480 1300 Uretheral (Jaimes) 1300 Estimated Blood Loss 40 Other: Voiding Method Indwelling Catheter # Voids 0 - Constitutional General appearance: Present: average body habitus, no acute distress - Psychiatric Psychiatric: Present: A&O x's 3 - Labs CBC & Chem 7: 06/16/24 05:46 Labs: Abnormal Lab Results - Last 24 Hours (Table) 06/15/24 06/16/24 Range/Units 10:53 05:46 RBC 3.26 L (3.80-5.40) m/uL Hgb 10.4 L (11.4-16.0) gm/dL Hct 31.6 L (34.0-46.0) % Plt Count 110 L (150-450) k/uL POC Glucose (mg/dL) 129 H (70-110) mg/dL Assessment and Plan (1) Mixed urinary incontinence due to female genital prolapse Current Visit: Yes Status: Acute Code(s): N39.46 - MIXED INCONTINENCE; N81.9 - FEMALE GENITAL PROLAPSE, UNSPECIFIED SNOMED Code(s): 298853314 Plan: Monitor postvoid residuals. If patient is unable to void or empties her bladder incompletely, she will likely be taught to perform intermittent self- catheterization. Solifenacin will continue to be held.
--- NOTE | 2024-06-16 10:11 | P.PN ---
Progress Note - Text Adequate analgesia. No anesthetic complications.
--- NOTE | 2024-06-16 10:50 | P.DS ---
Providers Expected date of discharge: 06/16/24 Attending physician: Raad Panda Primary care physician: Shanon Gaytan - Discharge Diagnosis(es) (1) Cystocele Current Visit: Yes Status: Acute (2) DELORIS (stress urinary incontinence, female) Current Visit: Yes Status: Acute (3) Uterine prolapse Current Visit: Yes Status: Acute Hospital Course: Patient is a 59-year-old 5 para 5-0-0-5 who presented to the office with longstanding complaints of symptoms of pelvic organ prolapse and specifically was found to have grade 2+ uterine prolapse with grade 3+ cystocele. She additionally has a complaint of urinary incontinence which is mixed in nature with a moderate component of stress urinary incontinence. She has been evaluated by urology and deemed a candidate for suburethral sling. From a gynecologic perspective, she would benefit from vaginal hysterectomy with anterior colporrhaphy. She was taken to the operating room where she underwent vaginal hysterectomy, left salpingo-oophorectomy, right salpingectomy, and anterior colporrhaphy in an uncomplicated fashion. The case was then passed to Dr. Lozano who performed the sling procedure. The patient's postoperative course has been unremarkable with vital signs remaining stable and her temperature was afebrile throughout. She had the vaginal packing and catheter removed this morning and as of yet, has been unable to void but is beginning to feel an urge. She has been deemed stable for discharge pending adequate voiding and postvoid residuals will be measured using the Uroscan device. Per Dr. Lozano, should she be unable to completely or adequately void, she will be tau ght self cath techniques for the short-term. She will be discharged home today on postoperative day #1 to follow-up with urology in the next 1 to 2 weeks and with myself at 6 weeks. Discharge instructions included calling for any significantly increased bleeding, pain, fever, urinary or GI complaints, or anything else that concerned her. She was specifically instructed to do no heavy lifting of anything greater than 10 pounds over the next 6 weeks and to abstain from anything in the vagina for the same period of time. She was lastly instructed to do no driving until off of all pain medications or 2 weeks time, whichever came first. She understood her instructions and agrees to follow-up as noted above. Discharge medications included only her normal home medications as well as [id number] analgesic pain medications. She declined the need for any narcotic pain control. Discharge hemoglobin and hematocrit were 10.4 and 31.6 respectively. Plan - Discharge Summary Discharge Rx Participant: No New Discharge Prescriptions: New Cephalexin [Keflex] 500 mg PO Q8HR 3 Days #9 cap No Action Rosuvastatin Calcium [Crestor] 5 mg PO HS Aspirin [[place] Aspirin EC] 1 each PO DAILY Famotidine [Pepcid] 40 mg PO BID Telmisartan 10 mg PO QAM Tirzepatide [Mounjaro] 12.5 mg SQ TU Ergocalciferol [Vitamin D2 (1250 Mcg = 01230 Iu)] 1 cap PO VELA metFORMIN HCL ER [Glucophage XR] 500 mg PO BID Solifenacin Succinate [Vesicare] 10 mg PO HS Albuterol Inhaler [Ventolin Hfa Inhaler] 1 puff INHALATION DIRECTED PRN PRN Reason: Shortness Of Breath Or Wheezing Estrogens, Conjugated Cream [Premarin Vaginal Cream] 1 applicator VAGINAL HS Discharge Medication List Aspirin [[place] Aspirin EC] 1 each PO DAILY 02/14/20 [History] Rosuvastatin Calcium [Crestor] 5 mg PO HS 02/14/20 [History] Albuterol Inhaler [Ventolin Hfa Inhaler] 1 puff INHALATION DIRECTED PRN 11/24/22 [History] Ergocalciferol [Vitamin D2 (1250 Mcg = 65382 Iu)] 1 cap PO VELA 11/24/22 [History] Famotidine [Pepcid] 40 mg PO BID 11/24/22 [History] Solifenacin Succinate [Vesicare] 10 mg PO HS 11/24/22 [History] Telmisartan 10 mg PO QAM 11/24/22 [History] Tirzepatide [Mounjaro] 12.5 mg SQ TU 11/24/22 [History] metFORMIN HCL ER [Glucophage XR] 500 mg PO BID 11/24/22 [History] Estrogens, Conjugated Cream [Premarin Vaginal Cream] 1 applicator VAGINAL HS 06/08/24 [History] Cephalexin [Keflex] 500 mg PO Q8HR 3 Days #9 cap 06/16/24 [Rx] Follow up Appointment(s)/Referral(s): Jalen Lozano MD [STAFF PHYSICIAN] - 1 Week Lensmeyer,Raad, MD [STAFF PHYSICIAN] - 6 Weeks Patient Instructions/Handouts: *Surgery [facility] - Scopalamine Patch Instructions Discharge Disposition: HOME SELF-CARE
[2024-06-16] MEDS: IBUPROFEN 600 MG TAB PO PRN (13:57)
== END 2024-06-16 17:10 | disposition home or self-care (01) ==
LOC: OR 05:38 → 4FBP 09:20 → OR 06-16 17:10
PROVIDERS: ATTEND Obstetrics & Gynecology
DX: N81.4 Uterovaginal prolapse, unspecified (principal); J45.909 Unspecified asthma, uncomplicated; E11.9 Type 2 diabetes mellitus without complications; K58.9 Irritable bowel syndrome, unspecified; I10 Essential (primary) hypertension; G47.33 Obstructive sleep apnea (adult) (pediatric); N30.90 Cystitis, unspecified without hematuria; K21.9 Gastro-esophageal reflux disease without esophagitis; E78.5 Hyperlipidemia, unspecified; F32.A Depression, unspecified; F41.9 Anxiety disorder, unspecified; Z87.440 Personal history of urinary (tract) infections; Z96.653 Presence of artificial knee joint, bilateral; Z98.51 Tubal ligation status; Z82.49 Family history of ischemic heart disease and other diseases of the circulatory system; Z83.3 Family history of diabetes mellitus; Z79.84 Long term (current) use of oral hypoglycemic drugs; Z79.899 Other long term (current) drug therapy; Z79.1 Long term (current) use of non-steroidal anti-inflammatories (NSAID); Z79.818 Long term (current) use of other agents affecting estrogen receptors and estrogen levels; Z79.82 Long term (current) use of aspirin; Z91.040 Latex allergy status; Z88.8 Allergy status to other drugs, medicaments and biological substances
CPT/HCPCS: 88305; 85025; 58262; 57240; C1771; J2250; J0330; J1200; J1580; J1100; J2300; J0690 ×2; J2405; J2003; J3010; J1885 ×2; J2704

== ENCOUNTER → 2024-08-09 | Outpatient (CLI) | payer BC ==
[2024-08-09 16:20] VITALS: BP 105/62; PULSE 95; RESP 16; TEMP 97.8
--- NOTE | 2024-08-09 16:58 | P.PROGSL ---
Subjective DATE: 08/04/2024 FOLLOW UP VISIT. Patient with obstructive sleep apnea hypopnea syndrome return to sleep center for follow-up visit. Information from previous visit have been reviewed. Patient is using PAP equipment every night for the whole night, getting PAP supplies in time. The patient does not have significant problems with the mask, PAP unit and humidification. [place] sleepiness scale is 3, which is normal. I checked information from PAP unit. PAP unit pressure 5-10, average 9.8 cm H2O. Usage is 90% for more then 4 hours, average 4.6 hours per night. Leak is 16 l/m, which is in acceptable range. Apnea Hypopnea Index is 2.1, which is normal. Patient has difficulties to initiate and maintain sleep at the present time, sleep short hours. MEDICATIONS have been reviewed, please see below. During physical exam: GENERAL: A pleasant patient without any distress. VITAL SIGNS: Please see below, weight is 148 pounds, BMI 29.8. HEENT: PERRLA, EOMI.low position of soft palate, Mallapati 4 . NECK: Supple. No JVD. LUNGS: Clear to percussion and to auscultation. Good air exchange. No wheezing or rhonchi. HEART: S1, S2 regular. ABDOMEN: Soft and nontender.[] EXTREMITIES: No clubbing or cyanosis. 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 No focal deficit. Impressions: 1. Obstructive sleep apnea-hypopnea syndrome. Patient demonstrated great compliance with treatment, benefiting from treatment. 2. Status post recent total hysterectomy. 3. Diabetes mellitus. 4. Hyperlipidemia. 5. Acid reflux. 6. Status post bilateral knee replacement. 7. Insomnia. Plan: 1. Continue using PAP equipment every night for the whole night. 2. Sleep hygiene with regular time in bed for at least 7.5-8 hours 3. PAP unit should stay lower then position of the head. 4. Advised patient to remove all remaining water from humidifier canister daily and make it dry after each usage. Refill canister with fresh distilled water before each usage. 5. Watching weight. 6. Precautions related to driving. No driving if feel any sleepiness. 7. I will maintain prescription for PAP supplies including mask, tube, filters. 8. Patient will be started on lower doses of Ambien 5 mg at bedtime. Patient will start half of the tablet at bedtime. 9. Follow up visit in 5 months or earlier if patient has any problems. Thank you very much for allowing me to participate in the management of your patient. Charlie Chávez MD, PhD, FAASM. Diplomat of [place] [employer], Sleep Medicine Board by [place] [employer] Pricing Act[employer] of [facility] [place] Objective - Vital Signs Vital Signs: Vital Signs Temp 97.8 F 08/09/24 16:18 Pulse 95 08/09/24 16:18 Resp 16 08/09/24 16:18 BP 105/62 08/09/24 16:18 Pulse Ox 98 08/09/24 16:18 FiO2 Intake & Output 08/08/24 08/09/24 08/09/24 18:59 06:59 18:59 Weight 67.132 kg Home Medications: Home Medications Medication Instructions Recorded Confirmed Type Aspirin [[place] Aspirin EC] 1 each PO DAILY 02/14/20 08/09/24 History Rosuvastatin Calcium [Crestor] 5 mg PO HS 02/14/20 08/09/24 History Albuterol Inhaler [Ventolin Hfa 1 puff INHALATION DIRECTED PRN 11/24/22 06/08/24 History Inhaler] Ergocalciferol [Vitamin D2 (1250 1 cap PO VELA 11/24/22 06/08/24 History Mcg = 03985 Iu)] Famotidine [Pepcid] 40 mg PO BID 11/24/22 08/09/24 History Solifenacin Succinate [Vesicare] 10 mg PO HS 11/24/22 06/08/24 History Telmisartan 10 mg PO QAM 11/24/22 08/09/24 History Tirzepatide [Mounjaro] 12.5 mg SQ TU 11/24/22 08/09/24 History metFORMIN HCL ER [Glucophage XR] 500 mg PO BID 11/24/22 08/09/24 History Estrogens, Conjugated Cream 1 applicator VAGINAL HS 06/08/24 08/09/24 History [Premarin Vaginal Cream] Cephalexin [Keflex] 500 mg PO Q8HR 3 Days #9 cap 06/16/24 Rx
== END ==
LOC: 3 N SLEEP 15:07
PROVIDERS: ATTEND Internal Medicine
DX: G47.33 Obstructive sleep apnea (adult) (pediatric) (principal); E11.9 Type 2 diabetes mellitus without complications; E78.5 Hyperlipidemia, unspecified; K21.9 Gastro-esophageal reflux disease without esophagitis; Z98.890 Other specified postprocedural states; Z90.710 Acquired absence of both cervix and uterus; Z99.89 Dependence on other enabling machines and devices; Z91.040 Latex allergy status; Z88.1 Allergy status to other antibiotic agents; Z88.8 Allergy status to other drugs, medicaments and biological substances
CPT/HCPCS: 99212

== ENCOUNTER 2024-08-18 06:16 | Day surgery (SDC) | payer BC ==
[~2024-08-18 06:16] MED LIST changes: -GENTAMICIN 80 MG in SODIUM CHLORIDE 0.9% 100 ML IVPB PRN; +LACTATED RINGERS 1,000 ML IV SCH; +Pre Op ABX Message 1 EACH MISC MISCELLANE ONE; +SCOPOLAMINE 1 MG/72 HR PATCH TRANSDERM ONE
[2024-08-18] MEDS: IV FLUID CONTINUATION 1,000 ML IV ONE (06:47)
[2024-08-18 06:49] VITALS: TEMP 97.9
[2024-08-18] MEDS ORDERED: MIDAZOLAM 2 MG/2 ML VIAL IV PRN (07:00)
[2024-08-18] MEDS ORDERED: HYDROmorphone 0.5 MG/0.5 ML SYRINGE IVP PRN (07:00)
[2024-08-18 07:02] LABS: Glucose,Whole Blood 107 mg/dL (70-110)
[2024-08-18] MEDS: ACETAMINOPHEN TAB 500 MG TAB PO PRN (07:06)
[2024-08-18] MEDS: ONDANSETRON 4 MG/2 ML VIAL IVP ONE (07:08)
[2024-08-18] MEDS: DEXAMETHASONE SOD PHOSPHATE 4 MG/ML 1 ML VIAL IVP STA (07:08)
[2024-08-18] MEDS: HEPARIN SODIUM,PORCINE 5,000 UNIT/ML 1 ML VIAL SQ PRN (07:09)
[2024-08-18] MEDS ORDERED: PHENYLEPHRINE 10 MG/ML VIAL ONE (07:25)
[2024-08-18] MEDS ORDERED: fentaNYL (PF) 50 MCG/ML 2 ML AMP ONE (07:25)
[2024-08-18] MEDS ORDERED: MIDAZOLAM 2 MG/2 ML VIAL ONE (07:25)
[2024-08-18] MEDS ORDERED: ceFAZolin 1 GM/50 ML BAG (PMX) ONE (07:25)
[2024-08-18] MEDS ORDERED: PROPOFOL 10 MG/ML 20 ML VIAL IV ONE (07:25)
[2024-08-18] MEDS ORDERED: KETOROLAC 15 MG/ML 1 ML VIAL ONE (07:25)
--- NOTE | 2024-08-18 07:25 | P.GSHP ---
History of Present Illness H&P Date: 08/18/24 Chief Complaint: Right back lipoma 59-year-old female here for excision right back lipoma. Increasing in size over the last several years. Increasing pain as well particular sitting against a hard surface. No history of similar events in that area. Past Medical History Past Medical History: Asthma, Diabetes Mellitus, GERD/Reflux, Hyperlipidemia, Hypertension, Pneumonia, Skin Disorder, Sleep Apnea/CPAP/BIPAP Additional Past Medical History / Comment(s): bronchitis and pneumonia hx. Hx of ezcema History of Any Multi-Drug Resistant Organisms: None Reported Past Surgical History: Bladder Surgery, Hysterectomy, Orthopedic Surgery, Tubal Ligation, Uterine Ablation Additional Past Surgical History / Comment(s): Dilatation and curetagge. Bilat knee replacement. Left wrist ganglion cyst removal, cataract surgery, bladder sling and ant repair. Past Anesthesia/Blood Transfusion Reactions: Motion Sickness, Postoperative Nausea & Vomiting (PONV) Additional Past Anesthesia/Blood Transfusion Reaction / Comment(s): ponv Smoking Status: Never smoker - Past Family History Father Family Medical History: No Reported History Medications and Allergies Home Medications Medication Instructions Recorded Confirmed Type Aspirin [Beaver Aspirin EC] 1 each PO DAILY 02/14/20 08/14/24 History Rosuvastatin Calcium [Crestor] 5 mg PO HS 02/14/20 08/14/24 History Albuterol Inhaler [Ventolin Hfa 1 puff INHALATION DIRECTED PRN 11/24/22 08/14/24 History Inhaler] Famotidine [Pepcid] 40 mg PO BID 11/24/22 08/14/24 History Telmisartan 10 mg PO QAM 11/24/22 08/14/24 History Tirzepatide [Mounjaro] 12.5 mg SQ TU 11/24/22 08/14/24 History metFORMIN HCL ER [Glucophage XR] 500 mg PO BID 11/24/22 08/14/24 History Estrogens, Conjugated Cream 1 applicator VAGINAL HS 06/08/24 08/14/24 History [Premarin Vaginal Cream] Vit B6(Unk) 1 tab PO DAILY 08/14/24 08/14/24 History Allergies Allergy/AdvReac Type Severity Reaction Status Date / Time bacitracin Allergy Rash/Hives Verified 08/14/24 09:45 duloxetine [From Cymbalta] Allergy Rash/Hives Verified 08/14/24 09:45 fluticasone [From Flonase] Allergy Swelling Verified 08/14/24 09:45 latex Allergy Swelling Verified 08/14/24 09:45 lisinopril Allergy Unknown Verified 08/14/24 09:45 Surgical - Exam Vital Signs Temp Pulse Resp BP Pulse Ox 97.9 F 80 18 91/60 98 08/18/24 06:47 08/18/24 06:47 08/18/24 06:47 08/18/24 06:47 08/18/24 06:47 Physical exam: General: Well-developed, well-nourished HEENT: Normocephalic, sclerae nonicteric Abdomen: Nontender, nondistended Extremities: No edema, right upper mid back with a 6 x 5 cm lipomatous mass Neuro: Alert and oriented Assessment and Plan (1) Lipoma of back Narrative/Plan: Will proceed with surgical excision at this time. Risks of bleeding, infection, scarring, recurrence reviewed. She understands and wishes to proceed. Current Visit: Yes Status: Acute Code(s): D17.1 - BENIGN LIPOMATOUS NEOPLASM OF SKIN, SUBCU OF TRUNK SNOMED Code(s): 865858858
[2024-08-18] MEDS: BUPIVACAINE (PF) 0.25% 30 ML VIAL SQ ONE ×2 (07:46)
[2024-08-18] MEDS ORDERED: traMADol 50 MG TAB PO PRN (08:13)
[2024-08-18] MEDS ORDERED: NALOXONE 0.4 MG/ML 1 ML VIAL IV PRN (08:13)
--- NOTE | 2024-08-18 08:13 | P.OP ---
Date of Procedure: 08/18/24 Procedure(s) Performed: PREOPERATIVE DIAGNOSIS: Right back lipoma POSTOPERATIVE DIAGNOSIS: Same PROCEDURE: Excision subfascial right back lipoma 8 x 4 cm with intermediate closure SURGEON: Lulu EBL: Star cc ANESTHESIA: Sedation and local COMPLICATIONS: None OPERATIVE PROCEDURE: Patient was placed in the left cubitus position. Right upper back prepped and draped sterilely. Horizontal incision was made overlying the palpable mass. Subcutaneous layers divided using lecture cautery. The patient's fascia was visualized and divided with electrocautery as well. The lipomatous mass was intertwined with the paraspinal muscles. This was able to be dissected primarily using blunt dissection except for the inferior aspect where electrocautery was utilized. This measured 8 x 4 cm. This was removed as 1 portion. This was sent to pathology. The fascial layer was reapproximated with 3-0 Vicryl sutures. The subcutaneous layers were closed using 3-0 Vicryl sutures and then the skin was reapproximated using a running 4-0 Monocryl stitch. Length of intermediate closure 5 cm. Sterile dressings were applied. DISPOSITION: Stable to recovery room
[2024-08-18 09:03] LABS: Glucose,Whole Blood 102 mg/dL (70-110)
[2024-08-18 09:09] VITALS: RESP 16
[2024-08-18 09:27] VITALS: BP 105/73; PULSE 71
== END 2024-08-18 09:45 | disposition home or self-care (01) ==
LOC: OR 06:16
PROVIDERS: ATTEND Surgery
DX: D17.1 Benign lipomatous neoplasm of skin and subcutaneous tissue of trunk (principal); I10 Essential (primary) hypertension; E78.5 Hyperlipidemia, unspecified; J45.909 Unspecified asthma, uncomplicated; E11.9 Type 2 diabetes mellitus without complications; K21.9 Gastro-esophageal reflux disease without esophagitis; F17.200 Nicotine dependence, unspecified, uncomplicated; G47.33 Obstructive sleep apnea (adult) (pediatric); Z90.710 Acquired absence of both cervix and uterus; Z96.653 Presence of artificial knee joint, bilateral; Z88.8 Allergy status to other drugs, medicaments and biological substances; Z91.040 Latex allergy status; Z79.82 Long term (current) use of aspirin; Z79.51 Long term (current) use of inhaled steroids; Z79.84 Long term (current) use of oral hypoglycemic drugs; Z79.899 Other long term (current) drug therapy
CPT/HCPCS: 21931; J2250; J1644; J1100; J2405; J3010; J0690; J1885; J2704; J2371; J0665; 88304

== ENCOUNTER → 2024-11-27 | Outpatient (CLI) | payer BC ==
--- NOTE | 2024-11-27 13:37 | NM ---
EXAMINATION TYPE: NM stress cardiolite complete DATE OF EXAM: 11/27/2024 COMPARISON: Prior stress test 2009 CLINICAL INDICATION: Female, 59 years old with history of I25.10 CORONARY ARTERY DISEASE; history of hypertension and diabetes and asthma. Family history of coronary artery disease and mild. TECHNIQUE: After the intravenous administration of 10.11 mCi Tc 99m Sestamibi - Rest images obtained 59 minutes post injection. The patient exercised using a KAYODE protocol and 1 minute prior to peak exercise was injected with 24.3 mCi Tc 99m Sestamibi - Stress images obtained 24 minutes post inject ion. FINDINGS: Targeted heart rate was achieved during performance of the study. Review of stress and rest SPECT sloan ges demonstrates diminished uptake on rest and stress images in the anteroseptal wall could reflect o ld infarct versus artifact. Correlate with EKG advised. No convincing evidence for reversible ischemi a. Gated analysis shows an estimated left ventricular ejection fraction of 66 %. IMPRESSION: No scintigraphic evidence for reversible ischemia [facility], , 11/27/2024 1:35 PM
--- NOTE | 2024-11-27 13:58 | CA ---
Exercise Stress Test Report Name: Brunilda Castillo Exam Date: 11/27/2024 10:43 Exam Location: [place] Stress Ht (in): 59 Wt (lb): 150 BSA: 1.63 Ordering Phys: Shanon Gaytan MD Referring Phys: JOSEPH Technologist: Desmond Yang Age: 59 Gender: F : 1965 Procedure CPT: Indications: I25.10 CORONARY ARTERY DISEASE ICD-10 Codes: Patient History: HTN, DIABETIC, HYPERCHOLESTEROLEMIA, FAMILY HX OF HEART DISEASE Medications: Meds past 24 hrs: Pretest Chest Pain: STRESS TEST Tripp Protocol Exercise Duration (min:sec): 07:[address] Depressions (mm): Angina Score: Scherer Score: Resting HR (bpm): 84 Peak HR (bpm): 158 Resting BP (mmHg): 91 / 48 Peak BP (mmHg): 134 / 62 MPHR: 159 Target HR: 135 % MPHR: 99 METS: 10.1 Total Dose: Peak Dose: Atropine: Double Product: 77221 BP Response: Stress Termination: TARGET HR Stress Symptoms: NO SYMPTOMS Stress Summary: ECG ANALYSIS Resting ECG: Stress ECG: CONCLUSIONS Excellent exercise tolerance Nondiagnostic stress testing due to mild EKG changes Consider stress test with imaging modality Dr. Blake Champion MD (Electronically Signed) Final Date: 27 November 2024 13:57
== END | disposition home or self-care (01) ==
LOC: RADNMMAIN 08:01
PROVIDERS: ATTEND Internal Medicine
DX: I25.10 Atherosclerotic heart disease of native coronary artery without angina pectoris (principal); R94.31 Abnormal electrocardiogram [ECG] [EKG]
CPT/HCPCS: 93017; 78452; A9500

== ENCOUNTER → 2024-12-20 | Outpatient (CLI) | payer BC ==
--- NOTE | 2024-12-20 16:46 | CA ---
Transthoracic Echo Report Name: Brunilda Castillo Age: 59 Gender: F : 1965 Exam Date: 12/20/2024 13:04 Exam Location: [place] Echo Ht (in): 59 Wt (lb): 147 Ordering Physician: Shanon Gaytan MD Attending/Referring Phys: Quality Assurance Practice Manager Love Ray RDCS Procedure CPT: Indications: I25.10 ATHSCL HEART DISEASE OF [place] CORONARY ART Cardiac Hx: Technical Quality: Good Contrast 1: Total Dose (mL): Contrast 2: Total Dose (mL): MEASUREMENTS (Male / Female) Normal Values 2D ECHO LV Diastolic Diameter PLAX 4.5 cm 4.2 - 5.9 / 3.9 - 5.3 cm LV Systolic Diameter PLAX 3.2 cm IVS Diastolic Thickness 0.8 cm 0.6 - 1.0 / 0.6 - 0.9 cm LVPW Diastolic Thickness 0.7 cm 0.6 - 1.0 / 0.6 - 0.9 cm LV Relative Wall Thickness 0.3 RV Internal Dim ED PLAX 2.4 cm LVOT Diameter 1.6 cm Aortic Root Diameter 2.4 cm LA Systolic Diameter LX 3.1 cm 3.0 - 4.0 / 2.7 - 3.8 cm LV Diastolic Volume MOD 4C 77.4 cm??? LV Systolic Volume MOD 4C 31.9 cm??? LV Ejection Fraction MOD 4C 58.7 % LV Cardiac Index MOD 4C 1960.8 cm???/min???m??? LV Diastolic Length 4C 7.5 cm LV Systolic Length 4C 5.5 cm LA Volume 41.2 cm??? 18 - 58 / 22 - 52 cm??? LA Volume Index 24.3 cm???/m??? 16 - 28 cm???/m??? DOPPLER AI Peak Velocity 349.0 cm/s AI Peak Gradient 48.7 mmHg MV Area PHT 3.2 cm??? Mitral E Point Velocity 65.9 cm/s Mitral A Point Velocity 79.9 cm/s Mitral E to A Ratio 0.8 MV Deceleration Time 234.9 ms TR Peak Velocity 216.8 cm/s TR Peak Gradient 18.8 mmHg FINDINGS Left Ventricle Left ventricular ejection fraction is estimated at 60%. Normal Left ventricular size, wall thickness, systolic function with no obvious regional wall motion abnormalities. Right Ventricle Normal right ventricular size and function. Right ventricular systolic pressure within normal limits. Right Atrium Normal right atrial size. Left Atrium Normal left atrial size. Mitral Valve Structurally normal mitral valve. No mitral stenosis. No mitral regurgitation. Aortic Valve Trileaflet aortic valve. No aortic valve stenosis. Mild aortic regurgitation. Tricuspid Valve Structurally normal tricuspid valve. No tricuspid stenosis. Trace tricuspid regurgitation. Pulmonic Valve Structurally normal pulmonic valve. No pulmonic stenosis. Trace pulmonic regurgitation. Pericardium No pericardial effusion. Aorta Normal size aortic root and proximal ascending aorta. CONCLUSIONS Left ventricular ejection fraction 60% No mitral regurgitation Trace tricuspid regurgitation No pericardial effusion Previewed by: Dr. John Navarro DO (Electronically Signed) Final Date: 20 December 2024 16:45
== END | disposition home or self-care (01) ==
LOC: RADECHMAIN 08:09
PROVIDERS: ATTEND Internal Medicine
DX: I25.10 Atherosclerotic heart disease of native coronary artery without angina pectoris (principal); I07.1 Rheumatic tricuspid insufficiency
CPT/HCPCS: 93306

== ENCOUNTER → 2024-12-23 | Outpatient (CLI) | payer BC ==
--- NOTE | 2024-12-23 15:52 | MR ---
EXAMINATION TYPE: MR lumbar spine wo/w con DATE OF EXAM: 12/23/2024 3:36 PM COMPARISON: None. CLINICAL INDICATION: Female, 59 years old with history of M43.06 SPONDYLOLYSIS, LUMBAR REGION, Patien t having back pain that radiates down both legs. Some numbness TECHNIQUE: Multiplanar, MultiSpin echo imaging of the lumbar spine was performed. CONTRAST: The patient was injected with 7 mL intravenous Gadobutrol gadolinium contrast. FINDINGS: L1-L2: Moderate disc desiccation with moderate circumferential disc bulge. Effacement ventral thecal sac without evidence for central stenosis or lateral recess stenosis. Foramina are patent bilaterally . Mild facet joint arthropathy. Ventral spondylosis. L2-L3: Moderate disc desiccation with moderate circumferential disc bulge. Effacement ventral thecal sac without evidence for central stenosis or lateral recess stenosis. Foramina are patent bilaterally . Mild facet joint arthropathy. Ventral spondylosis. L3-L4: Moderate disc desiccation with moderate circumferential disc bulge. Effacement ventral thecal sac without evidence for central stenosis or lateral recess stenosis. Foramina are patent bilaterally . Mild facet joint arthropathy. Ventral spondylosis. L4-L5: Grade 1 anterolisthesis of L4 on L5 measuring approximately 3 mm. Moderate disc desiccation wi th circumferential disc bulge. There is bilateral lateral recess stenosis right greater than left wit hout foraminal encroachment. No definite central stenosis at this time. L5-S1: Severe disc desiccation with posterior disc endplate complex. Mild effacement ventral thecal s ac without herniation or protrusion. No central stenosis. Mild bilateral foraminal encroachment. Lumbar segments are intact. No paraspinal masses are identified. Conus medullaris has a normal appe arance. No pathologic enhancement appreciated. IMPRESSION: 1. Multilevel degenerative disc disease. 2. Bilateral lateral recess stenosis at L4-5 and very degrees of foraminal encroachment as noted. [facility], , 12/23/2024 3:50 PM
== END | disposition home or self-care (01) ==
LOC: RADMRIMAIN 14:49
PROVIDERS: ATTEND Internal Medicine
DX: M48.061 Spinal stenosis, lumbar region without neurogenic claudication (principal); M51.369 Other intervertebral disc degeneration, lumbar region without mention of lumbar back pain or lower extremity pain; M43.06 Spondylolysis, lumbar region
CPT/HCPCS: 72158; A9585

== ENCOUNTER → 2025-01-03 | Outpatient (CLI) | payer BC ==
[2025-01-03 16:19] VITALS: BP 104/68; PULSE 88; RESP 16; TEMP 98.1
--- NOTE | 2025-01-03 16:57 | P.PROGSL ---
Subjective DATE: 01/03/2025 FOLLOW UP VISIT. Patient with obstructive sleep apnea hypopnea syndrome return to sleep center for follow-up visit. Information from previous visit have been reviewed. Patient is using PAP equipment every night for the whole night, getting PAP supplies in time. The patient does not have significant problems with the mask, PAP unit and humidification. Mobile sleepiness scale is 2, which is normal. I checked information from PAP unit. PAP unit pressure 5-10, average 9.8 cm H2O. Usage is 100% and 70% for more then 4 hours, average 5.2 hours per night. Leak is 22.2 l/m, which is in acceptable range. Apnea Hypopnea Index is 0.8, which is normal. MEDICATIONS have been reviewed, please see below, additionally Claritin and Nasacort. During physical exam: GENERAL: A pleasant patient without any distress. VITAL SIGNS: Please see below, weight is 147.8 lbs. HEENT: PERRLA, EOMI.low position of soft palate, Mallapati 4 . NECK: Supple. No JVD. LUNGS: Clear to percussion and to auscultation. Good air exchange. No wheezing or rhonchi. HEART: S1, S2 regular. ABDOMEN: Soft and nontender.[] EXTREMITIES: No clubbing or cyanosis. 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 No focal deficit. Impressions: 1. Obstructive sleep apnea-hypopnea syndrome. Patient demonstrated great compliance with treatment, benefiting from treatment. 2. Diabetes mellitus, recent hemoglobin A1c according to patient 5.4. 3. Status post total hysterectomy. 4. Acid reflux. 5. Hyperlipidemia. 6. Insomnia. 7. Status post bilateral knee replacement. Plan: 1. Continue using PAP equipment every night for the whole night. 2. Sleep hygiene with regular time in bed for at least 7.5-8 hours 3. PAP unit should stay lower then position of the head. 4. Advised patient to remove all remaining water from humidifier canister daily and make it dry after each usage. Refill canister with fresh distilled water before each usage. 5. Watching weight. 6. Precautions related to driving. No driving if feel any sleepiness. 7. I will maintain prescription for PAP supplies including mask, tube, filters. 8. Follow up visit in 8 months or earlier if patient has any problems. Thank you very much for allowing me to participate in the management of your patient. Charlie Chávez MD, PhD, FAASM. Diplomat of [place] [employer], Sleep Medicine Board by [place] [employer] Informatics Coordinator of [facility] [place] Objective - Vital Signs Vital Signs: Vital Signs Temp 98.1 F 01/03/25 16:16 Pulse 88 01/03/25 16:16 Resp 16 01/03/25 16:16 BP 104/68 01/03/25 16:16 Pulse Ox 95 01/03/25 16:16 FiO2 Intake & Output 01/02/25 01/03/25 01/03/25 18:59 06:59 18:59 Weight 66.905 kg Home Medications: Home Medications Medication Instructions Recorded Confirmed Type Aspirin [Hyde Aspirin EC] 1 each PO DAILY 02/14/20 01/03/25 History Rosuvastatin Calcium [Crestor] 5 mg PO HS 02/14/20 01/03/25 History Albuterol Inhaler [Ventolin Hfa 1 puff INHALATION DIRECTED PRN 11/24/22 08/14/24 History Inhaler] Famotidine [Pepcid] 40 mg PO BID 11/24/22 01/03/25 History Telmisartan 10 mg PO QAM 11/24/22 08/14/24 History Tirzepatide [Mounjaro] 10 mg SQ TU 11/24/22 01/03/25 History metFORMIN HCL ER [Glucophage XR] 500 mg PO BID 11/24/22 01/03/25 History Estrogens, Conjugated Cream 1 applicator VAGINAL HS 06/08/24 08/14/24 History [Premarin Vaginal Cream] Vit B6(Unk) 1 tab PO DAILY 08/14/24 08/14/24 History traMADol HCl [Ultram] 50 mg PO Q6H PRN #6 tab 08/18/24 Rx Triamcinolone Acetonide [Nasacort] 01/03/25 History
== END ==
LOC: 3 N SLEEP 15:46
PROVIDERS: ATTEND Internal Medicine
DX: G47.33 Obstructive sleep apnea (adult) (pediatric) (principal); E11.9 Type 2 diabetes mellitus without complications; K21.9 Gastro-esophageal reflux disease without esophagitis; E78.5 Hyperlipidemia, unspecified; Z96.653 Presence of artificial knee joint, bilateral; Z96.698 Presence of other orthopedic joint implants; Z98.890 Other specified postprocedural states; Z99.89 Dependence on other enabling machines and devices; Z91.040 Latex allergy status; Z88.1 Allergy status to other antibiotic agents; Z88.8 Allergy status to other drugs, medicaments and biological substances
CPT/HCPCS: 99212

== ENCOUNTER → 2025-01-11 | Outpatient (CLI) | payer BC ==
--- NOTE | 2025-01-11 15:15 | US ---
EXAMINATION TYPE: US kidneys/renal and bladder DATE OF EXAM: 01/11/2025 COMPARISON: CT 2020 CLINICAL INDICATION: Female, 59 years old with history of R31 GROSS HEMATURIA; TECHNIQUE: Grayscale imaging of the bilateral kidneys and urinary bladder: FINDINGS: EXAM MEASUREMENTS: Right Kidney: 10.5 x 5.4 x 4.6 cm Left Kidney: 10.0 x 4.7 x 4.7 cm Right Kidney: wnl Left Kidney: wnl Bladder: wnl Bilateral Jets seen: no IMPRESSION: Source of hematuria not identified. If symptoms persist further investigation with CT urogram would b e warranted. [facility], , 01/11/2025 3:13 PM
== END | disposition home or self-care (01) ==
LOC: RADUSWWP 14:43
PROVIDERS: ATTEND Urology
DX: R31.0 Gross hematuria (principal)
CPT/HCPCS: 76770

== ENCOUNTER → 2025-02-19 | Outpatient (CLI) | payer BC ==
[2025-02-19 15:34] LABS: Basophils # (A) 0.01 X 10*3/uL (0.00-0.10); Basophils % (A) 0.2 %; Eosinophils # (A) 0.12 X 10*3/uL (0.04-0.35); Eosinophils % (A) 2.4 %; HCT 39.7 % (37.2-46.3); HGB 12.7 g/dL (12.0-15.0); Lymphocytes # (A) 1.12 X 10*3/uL (0.90-5.00); Lymphocytes % (A) 22.5 %; MCV 93.6 FL (80.0-97.0); Mean Platelet Volume 9.8 FL (9.5-12.2); Monocytes # (A) 0.33 X 10*3/uL (0.20-1.00); Monocytes % (A) 6.6 %; NRBC Per 100 WBC 0 X 10*3/uL (0.00-0.01); Neutrophils # (A) 3.38 X 10*3/uL (1.80-7.70); Neutrophils % (A) 68.1 %; Platelet Count 169 X 10*3/uL (140-440); RBC 4.24 X 10*6/uL (4.10-5.20); RDW 12.4 % (11.5-14.5); WBC 4.97 X 10*3/uL (4.50-10.00)
[2025-02-19 16:04] LABS: Appearance,Urine Clear (Clear); Bilirubin,Urine Negative (Negative); Blood,Urine Negative (Negative); Color,Urine Yellow (Yellow); Ketones,Urine Negative (Negative); Nitrite,Urine Negative (Negative); PH, Urine 7.5; Specific Gravity,Urine 1.023 (1.001-1.030)
[2025-02-19 16:17] LABS: BUN/Creat Ratio 41.43 Ratio (12.00-20.00); Chloride 103 mmol/L (96-109); Chol/HDL Ratio 2.84 Ratio; Creatine Kinase 74 U/L (26-186); Glucose 98 mg/dL (70-110); LDL Cholesterol,Calculated 69.3 mg/dL (0.0-131.0); Magnesium 1.9 mg/dL (1.5-2.4); Potassium 4.1 mmol/L (3.5-5.5); Sodium 141 mmol/L (135-145); Uric Acid 4.8 mg/dL (2.9-7.7); VLDL Calculation 15.64 mg/dL (5.00-40.00)
[2025-02-19 16:18] LABS: ALT 29 U/L (8-44); AST 28 U/L (13-35); Albumin 4.4 g/dL (3.8-4.9); Albumin/Globulin Ratio 2.32 Ratio (1.60-3.17); Alkaline Phosphatase 62 U/L (41-126); Calcium 9.5 mg/dL (8.7-10.3); Carbon Dioxide 27.8 mmol/L (21.6-31.8); Globulin 1.9 g/dL (1.6-3.3); Total Bilirubin 0.3 mg/dL (0.3-1.2); Total Protein 6.3 g/dL (6.2-8.2)
== END | disposition home or self-care (01) ==
LOC: LABWHC1 10:26
DX: I10 Essential (primary) hypertension (principal); E78.2 Mixed hyperlipidemia; E11.9 Type 2 diabetes mellitus without complications; M85.852 Other specified disorders of bone density and structure, left thigh; R31.9 Hematuria, unspecified
CPT/HCPCS: 36415; 80053; 80061; 81003; 82306; 82550; 83036; 83735; 84443; 84550; 85025

== ENCOUNTER → 2025-02-26 | Outpatient (CLI) | payer BC | END | disposition home or self-care (01) | LOC: LABWHC1 10:16 | PROVIDERS: ATTEND Internal Medicine Endocrinology, Diabetes & Metabolism | DX: E11.65 Type 2 diabetes mellitus with hyperglycemia (principal); E55.9 Vitamin D deficiency, unspecified | CPT/HCPCS: 36415; 82043; 82306; 82570 ==

== ENCOUNTER → 2025-03-07 | Outpatient (CLI) | payer BC ==
[2025-03-07 08:43] VITALS: BP 103/71; PULSE 85; RESP 16
--- NOTE | 2025-03-12 08:56 | P.PAINPG ---
Objective - Vital Signs Vital signs: Intake & Output 03/06/25 03/07/25 03/07/25 18:59 06:59 18:59 Weight 66.678 kg PQRS Measure Charge Sheet Comment: HISTORY OF PRESENT ILLNESS: A 60 yr old female as a referral from Dr Gaytan presents today w severe and chronic LBP > 1yr secondary to radiculopathy, spondylosis and facet arthropathy without myelopathy for evaluation. Pt states pain level is provoked at 7 /10 in intensity, constant, localized in the lumbar spine, predominantly axial, sharp in character w occasional shooting pain towards the anterolateral thighs. Pain is provoked by lifting. Pain is alleviated by PT x 6 wks which ended in 2022, physician guided home stretches every other day since 2022, chiropractic treatments monthly since 1986 (hips, lumbar), heat, ice, medications, topical, repositioning and rest . Oswestry axial pain score at 26. PMH: OA, Asthma, NIDDM II, GERD, Hyperlipidemia, HTN, OP, Eczema, ROSA PSH: Lipoma Excision (2023), Hysterectomy, Tubal Ligation, D& C, Uterine Ablation, BL Knee Replacement, L Ganglion Cystectomy, Cataract Excision, Bladder Suspension SH: Negative x3 FH: Fa- No Reported History All: See list Medications include Tyl, Ibu, Lidoderm, BioFreeze REVIEW OF ORGAN SYSTEMS: CONSTITUTIONAL: No fevers or chills. No recent weight loss. NEUROLOGICAL: + numbness and tingling along the distal extremities. No seizure disorders or headaches. MUSCULOSKELETAL: + pain PSYCHIATRIC: Denies current depression or suicidal thoughts. Physical Examinations : Constitutional : Cooperative , not in acute distress . Neurologic : Cranial nerve II to XII intact. No focal neurological deficits. Psychiatric : alert & oriented x 3. Matching mood & appropriate affect. Judgment & insight intact. Musculoskeletal : Cervical Spine Motor strength in the deltoid and biceps: Normal right side. Normal Left side Motor strength biceps and the wrist extensors: Normal right side . Normal left side Motor strength in the triceps muscle: Normal right side. Normal left side Deep tendon reflexes: Normal at the biceps. Normal at Brachioradialis. Normal at triceps Vertebral body tenderness to deep palpation over Cervical facet loading test: positive bilaterally Spurling test: positive bilaterally Neck distraction test: positive bilaterally Duyen sign: positive bilaterally Lumbar spine Motor strength lower extremities ,thigh and legs 5/5 Right side , 5/5 Left side Deep tendon reflexes : Normal Knee Jerk. Normal Ankle Jerk Vertebral body tenderness over L3 Mast Test positive BL L3-L4 Lumbar facet Loading Test: positive Right / positive Left Range of motion of the lumbar spine Flexion 30 degrees, extension 10 degrees Straight Leg Raise test: Left/ Right positive at degrees You test: positive right / positive left. Severe tenderness over the Sacroiliac joint on the Right / Left sides Gaenslen test: positive bilaterally Seated flexion test: positive bilaterally. Sacral spine : Severe tenderness over the Sacroiliac joint: right side / left side Range of motion: Flexion of the lumbar spine <60 degrees Range of motion: Extension of the lumbar spine <20 degrees Gaenslen's Test positive You test: positive right side / left side Thigh Thrust Test Sacral Thrust Test Imaging: MRI with/ without contrast lumbar spine from 12/23/24 reviewed Assessment/ Plan : L4-L5 anterolisthesis, L5-S1 radiculopathy Recommendation of ASA L3-L4 #1. Risks, benefits of procedure discussed and patient verbalized understanding. Admits to anti- coagulant use or medical history of diabetes. Protocol for discontinuation/ continuation of medications kiley procedure discussed. All questions answered. I have spent greater than 30 minutes on patient care today. Dr Partida was available by phone for the evaluation of this patient. The time was used to review the medical records including relevant urine studies and Prescription history (MAPs), review of the available imaging, evaluation and examination of the patient, coordination of care with the medical staff and if applicable referring physicians, as well as creation of the medical record PQRS Narrative: Smoking Status Never smoker Home Medications: Ambulatory Orders Aspirin [[place]kins Aspirin EC] 1 each PO DAILY 02/14/20 Rosuvastatin Calcium [Crestor] 5 mg PO HS 02/14/20 Famotidine [Pepcid] 40 mg PO BID 11/24/22 Telmisartan 10 mg PO QAM 11/24/22 Tirzepatide [Mounjaro] 10 mg SQ TU 11/24/22 metFORMIN HCL ER [Glucophage XR] 500 mg PO BID 11/24/22 Estrogens, Conjugated Cream [Premarin Vaginal Cream] 1 applicator VAGINAL HS 06/08/24 Vit B6(Unk) 1 tab PO DAILY 12/23/24 Triamcinolone Acetonide [Nasacort] 01/03/25 Controlled Substance Measures - Controlled Substance Measures Is patient prescribed a controlled substance at discharge?: No
== END ==
LOC: PNWHC3 08:23
PROVIDERS: ATTEND Specialist
DX: M47.27 Other spondylosis with radiculopathy, lumbosacral region (principal); M43.16 Spondylolisthesis, lumbar region; Z91.040 Latex allergy status; Z88.1 Allergy status to other antibiotic agents; Z88.8 Allergy status to other drugs, medicaments and biological substances
CPT/HCPCS: 99202

== ENCOUNTER 2025-03-22 06:53 | Day surgery (SDC) | payer BC ==
[2025-03-16 15:19] VITALS: BMI 29.0
[2025-03-22] MEDS ORDERED: LACTATED RINGERS 1,000 ML IV SCH (06:55)
[2025-03-22 07:11] VITALS: TEMP 97.2
[2025-03-22 07:25] LABS: Glucose,Whole Blood 97 mg/dL (70-110)
[2025-03-22] MEDS ORDERED: methylPREDNISolone ACETATE 80 MG/ML 1 ML VIAL ONE (07:57)
[2025-03-22] MEDS ORDERED: IOPAMIDOL M200 10 ML VIAL ONE (07:57)
--- NOTE | 2025-03-22 08:09 | P.PCN ---
Date of Procedure: 03/22/25 Procedure(s) Performed: PREOPERATIVE DIAGNOSIS: 1- Lumbar radiculopathy 2-Lumbar spondylosis with Facet arthropathy without myelopathy. 3-lumbar foraminal stenosis POSTOPERATIVE DIAGNOSIS: 1-lumbar radiculopathy 2-lumbar spondylosis with facet arthropathy without myelopathy. 3-lumbar foraminal stenosis. PROCEDURE 1. Lumbar epidural steroid injection under fluoroscopic guidance at the L3-4 level. (Fluoroscopy imaging was available in radiology department) 2. Lumbar epidurogram. ANESTHESIA: Lidocaine 1% 3 and then only. EBL: Minimal PROCEDURE INDICATION: The patient with low back pain and radiculitis symptoms unresponsive to conservative treatment. Fluoroscopy was used to optimize visualization of the needle placement and to maximize safety. PROCEDURE DESCRIPTION / TECHNIQUE: The patient was seen and identified in the preoperative area. Risks, benefits, complications including but not limited to infections ,bleeding ,allergic reaction to the medications ,nerve damage and not complete pain releife , and alternatives were discussed with the patient. The patient agreed to proceed with the procedure and signed the consent, and vital signs were stable. Patient was taken to the OR and time out was completed. The patient was placed in the prone position on procedure table and a pillow was placed under the abdomen to reduce lumbar lordosis. The lumbosacral area was prepped and draped in the usual sterile fashion.ere closely monitored during the procedure. Vital signs was monitered during the entire procedure. Using anterior-posterior fluoroscopy, the L3-4 interlaminar space was identified and the skin over this site was marked and then infiltrated with 1% lidocaine subcutaneously. Subsequently, a 20-gauge Tuohy epidural needle was inserted and advanced toward the epidural space using the ``Loss of resistance technique and guided by AP and lateral fluoroscopy. The correct needle position in the epidural space was verified with the injection of 2 mL of the water soluble contrast dye Isovue 200 contrast and observing an excellent epidurogram with the epidural spread of the dye, after negative aspiration for blood and CSF and in the absence of paresthesias. Again after negative aspiration, a 6 ml mixture containing 60 mg of Depo-medrol ( Preservetive Free ), and 2 ml of preservative free Normal Saline, and 2 ml of preservative free lidocaine 1% solution was injected and a washout of epidurogram was seen. Needle was withdrawn intact, skin was cleansed, and bandages were applied. COMPLICATIONS: None DISPOSITION / PLANS: The patient was placed in a supine position and transferred to the recovery area in a stable condition for observation. There was no e vidence of lower extremity motor or sensory deficit after the procedure. Patient was discharged from the recovery room after meeting discharge criteria. Home discharge instructions were given to the patient by the staff. The patient was reexamined prior to discharge. The patient will schedule a follow up in the clinic in 2-4 weeks.
[2025-03-22 08:13] VITALS: PULSE 77
[2025-03-22 08:33] VITALS: BP 100/63; RESP 16
--- NOTE | 2025-03-22 08:49 | FL ---
EXAMINATION TYPE: FL guided pain mgmt statistic DATE OF EXAM: 03/22/2025 COMPARISON: NONE HISTORY: Pain TECHNIQUE: Fluoroscopy. FINDINGS: lesi in pain services fl time 4.8 secs dap [id number] IMPRESSION: As Above. [facility], , 03/22/2025 8:46 AM
== END 2025-03-22 09:05 | disposition home or self-care (01) ==
LOC: ORPAIN 06:53
PROVIDERS: ATTEND Specialist
DX: M47.26 Other spondylosis with radiculopathy, lumbar region (principal); M48.061 Spinal stenosis, lumbar region without neurogenic claudication
CPT/HCPCS: 62323; Q9966; J1010